=== PATIENT | male | born 1970 | race Caucasian/White ===

== ENCOUNTER → 2017-01-25 | Outpatient (CLI) | payer OTHER ==
[2014-11-19 10:21] VITALS: BP 140/74
[~2017-01-25] MED LIST: BLOOD PRESSURE MED; BUSP15TA PO; CYCL-331 PO; DIPH25CA58 PO; INSU100I17 SQ; SITA100T PO; TRAM50TA PO; ZOLP10TA PO
--- NOTE | 2017-01-25 10:29 | RAD ---
Left foot, 3 views, 01/25/2017: History: Foot contusion, injury No acute fracture or dislocation is identified. There is diffuse subcutaneous edema. IMPRESSION: No acute bony abnormality is detected.
== END | disposition home or self-care (01) ==
LOC: DXRADRC 10:09
PROVIDERS: ATTEND General Practice
DX: S90.32XD Contusion of left foot, subsequent encounter (principal); X58.XXXD Exposure to other specified factors, subsequent encounter
CPT/HCPCS: 73630

== ENCOUNTER → 2017-04-25 | Outpatient (CLI) | payer OTHER ==
[2014-11-19 10:21] VITALS: BP 140/74
--- NOTE | 2017-04-25 15:39 | RAD ---
Indication pain associated with a fall 2 weeks previously. Pain particularly lateral aspect of the foot. AP oblique and lateral views of the left foot were obtained. There is a slightly comminuted, traumatic, fracture involving the base of the shaft of the proximal phalanx of the fourth digit. IMPRESSION: Fractured proximal phalanx of the fourth digit
== END | disposition home or self-care (01) ==
LOC: DXRADRC 14:52
PROVIDERS: ATTEND General Practice
DX: S92.512A Displaced fracture of proximal phalanx of left lesser toe(s), initial encounter for closed fracture (principal); W19.XXXA Unspecified fall, initial encounter; Y93.9 Activity, unspecified; Y92.9 Unspecified place or not applicable; Y99.9 Unspecified external cause status
CPT/HCPCS: 73630

== ENCOUNTER → 2018-08-13 | Outpatient (CLI) | payer OTHER ==
[2014-11-19 10:21] VITALS: BP 140/74
[2018-08-13 15:53] LABS: BASO # 0.2 x10^3/uL (0.0-0.2); BASO % 2 % (0-3); EOS # 0.4 x10^3/uL (0.0-0.7); EOS % 4 % (0-3); HEMATOCRIT 46.7 % (39.0-53.0); HEMOGLOBIN 15.3 g/dL (13.0-17.5); LYMPH # 2.9 x10^3/uL (1.0-4.8); LYMPH % 30 % (24-48); MEAN CORPUSCULAR HEMOGLOBIN 28 pg (25-35); MEAN CORPUSCULAR HGB CONC 33 g/dL (31-37); MEAN CORPUSCULAR VOLUME 84 fL (79-100); MONO # 0.8 x10^3/uL (0.0-1.1); MONO % 8 % (0-9); NEUT # 5.5 x10^3uL (1.8-7.7); NEUT % 56 % (31-73); PLATELET COUNT 241 x10^3/uL (140-400); RED BLOOD COUNT 5.57 x10^6/uL (4.30-5.70); RED CELL DISTRIBUTION WIDTH 14.6 % (11.5-14.5); WHITE BLOOD COUNT 9.7 x10^3/uL (4.0-11.0)
[2018-08-13 16:15] LABS: ALBUMIN/GLOBULIN RATIO 0.7 (1.0-1.7); CALCIUM 8.5 mg/dL (8.5-10.1); CREATININE 1.1 mg/dL (0.7-1.3); GFR 71.4; MAGNESIUM 1.6 mg/dL (1.8-2.4); POTASSIUM 4.4 mmol/L (3.5-5.1); TOTAL BILIRUBIN 0.6 mg/dL (0.2-1.0); TOTAL PROTEIN 7.2 g/dL (6.4-8.2); URIC ACID 7.5 mg/dL (3.5-7.2)
[2018-08-14 02:06] LABS: HEMOGLOBIN A1C 9.5 % (4.8-5.6)
== END | disposition home or self-care (01) ==
LOC: LAB 15:22
PROVIDERS: ATTEND General Practice
DX: E11.9 Type 2 diabetes mellitus without complications (principal); M10.9 Gout, unspecified
CPT/HCPCS: 36415; 80053; 83036; 83735; 84550; 85025

== ENCOUNTER 2018-08-29 11:12 | Emergency (ER) | payer OTHER ==
[~2018-08-29] VITALS: Ht 165.1 cm; Wt 129.3 kg
[2018-08-29] MEDS ORDERED: IV NORMAL SALINE 1,000ML 1,000 ML IV SCH (11:30)
[2018-08-29] MEDS ORDERED: HYOSCYAMINE 0.125 MG TAB.RAPDIS PO ONE (11:30)
[2018-08-29] MEDS ORDERED: ONDANSETRON PF 4 MG/2 ML VIAL. IV ONE (11:30)
--- NOTE | 2018-08-29 11:36 | PHYS DOC ---
Past History Past Medical History: Anxiety, Depression, Diabetes, Hypertension Past Surgical History: Other Smoking: Non-smoker Alcohol Use: None Drug Use: None Adult General Chief Complaint Chief Complaint: ABDOMINAL PAIN HPI HPI Patient is a 48-year-old male who presents with nausea and vomiting and diarrhea that started this morning. No blood in the stool or emesis. Patient ate sauerkraut yesterday which is something that he has not eaten in a long time. Reports it's a diffuse crampy sensation in his abdomen improved with the episodes of vomiting and diarrhea. Denies any recent travel outside the country. Denies fever. Nothing seems to make the symptoms better or worse. He notes that he does feel lightheaded when standing up. Denies any chest pain or palpitations.[] Review of Systems Review of Systems Constitutional: Denies fever or chills [] Eyes: Denies change in visual acuity, redness, or eye pain [] HENT: Denies nasal congestion or sore throat [] Respiratory: Denies cough or shortness of breath [] Cardiovascular: No chest pain or palpitations[] GI: See history of present illness[] : Denies dysuria or hematuria [] Musculoskeletal: Denies back pain or joint pain [] Integument: Denies rash or skin lesions [] Neurologic: Denies headache, focal weakness or sensory changes [] Endocrine: Denies polyuria or polydipsia, notes that his blood sugar was 189 this morning which is a little high for him. [] All other systems were reviewed and found to be within normal limits, except as documented in this note. Allergies Allergies Allergies Coded Allergies Type Severity Reaction Last Updated Verified No Known Drug Allergies 07/24/13 No Physical Exam Physical Exam Constitutional: Well developed, well nourished, no acute distress, non-toxic appearance. [] HENT: Normocephalic, atraumatic, bilateral external ears normal, oropharynx moist, no oral exudates, nose normal. [] Eyes: PERRLA, EOMI, conjunctiva normal, no discharge. [] Neck: Normal range of motion, no tenderness, supple, no stridor. [] Cardiovascular:Heart rate is tachycardic with a regular rhythm, no murmur [] Lungs & Thorax: Bilateral breath sounds clear to auscultation [] Abdomen: Increased bowel sounds, soft, diffuse tenderness, no masses, no pulsatile masses. No McBurney's point tenderness, no Blancas's sign.[] Skin: Warm, dry, no erythema, no rash. [] Back: No tenderness, no CVA tenderness. [] Extremities: No tenderness, no cyanosis, no clubbing, ROM intact, no edema. [] Neurologic: Alert and oriented X 3, normal motor function, normal sensory function, no focal deficits noted. [] Psychologic: Affect normal, judgement normal, mood normal. [] Current Patient Data Vital Signs Vital Signs Date Time Temp Pulse Resp B/P (MAP) Pulse Ox O2 Delivery O2 Flow Rate FiO2 08/29/18 11:15 97.7 113 20 96 Room Air EKG EKG [] Radiology/Procedures Radiology/Procedures [] Course & Med Decision Making Course & Med Decision Making Pertinent Labs and Imaging studies reviewed. (See chart for details) ED course: Patient arrived, was placed in bed, and tolerated exam well. He received IV fluids, antiemetics, and antispasmodics which significantly improved his discomfort. After the return of the laboratory studies, these were discussed with the patient who voiced understanding. All questions were answered. Patient was discharged in improved condition. Medical decision making: Patient does not appear to be in DKA, no evidence of intractable nausea or vomiting, no hematemesis, no evidence of other significant intra-abdominal pathology.[] Dragon Disclaimer Dragon Disclaimer This electronic medical record was generated, in whole or in part, using a voice recognition dictation system. Departure Departure: Impression: Primary Impression: Abdominal pain Additional Impression: Nausea, vomiting, and diarrhea Disposition: 01 HOME, SELF-CARE Condition: IMPROVED Referrals: RIA NGUYEN DO (PCP) Follow-up in 2 days Patient Instructions: Abdominal Pain (Nonspecific), Diet for Diarrhea, Adult, Nausea and Vomiting Additional Instructions: Drink plenty of fluids, frequent small sips. No fatty foods, no milk, and no pepper for the next 48 hours. For the next 48 hours eat a diet rich in carbohydrates with foods such as bananas, rice, applesauce, and toast. Follow- up with your regular doctor in 2 days. Return to the ER if unable to tolerate liquids, worsening discomfort, or any other concerns. Scripts Ondansetron Hcl (ZOFRAN) 4 Mg Tablet 1 TAB PO Q6HRS for nausea or vomiting, #20 TAB Prov: NATE CASTILLO DO 08/29/18 Hyoscyamine Sulfate (LEVSIN) 0.125 Mg Tablet 0.125 MG PO QID for abdominal pain/cramping, #30 TAB Prov: NATE CASTILLO DO 08/29/18 Problem Qualifiers Primary Impression: Abdominal pain Abdominal location: generalized Qualified Codes: R10.84 - Generalized abdominal pain NATE CASTILLO DO Aug 29, 2018 11:35
[2018-08-29 12:22] LABS: BASO % 0 % (0-3); EOS # 0.1 x10^3/uL (0.0-0.7); EOS % 1 % (0-3); HEMATOCRIT 54.9 % (39.0-53.0); HEMOGLOBIN 18.1 g/dL (13.0-17.5); LYMPH # 1.7 x10^3/uL (1.0-4.8); LYMPH % 15 % (24-48); MEAN CORPUSCULAR HEMOGLOBIN 27 pg (25-35); MEAN CORPUSCULAR HGB CONC 33 g/dL (31-37); MEAN CORPUSCULAR VOLUME 83 fL (79-100); MONO # 0.5 x10^3/uL (0.0-1.1); MONO % 5 % (0-9); NEUT # 8.7 x10^3uL (1.8-7.7); NEUT % 79 % (31-73); PLATELET COUNT 263 x10^3/uL (140-400); RED BLOOD COUNT 6.62 x10^6/uL (4.30-5.70); RED CELL DISTRIBUTION WIDTH 14.8 % (11.5-14.5); WHITE BLOOD COUNT 11.1 x10^3/uL (4.0-11.0)
[2018-08-29 12:24] LABS: CLARITY,URINE HAZY; COLOR,URINE AMBER
[2018-08-29 12:25] LABS: BACTERIA,URINE FEW /HPF (0-FEW); BILIRUBIN,URINE NEG (NEG); GLUCOSE,URINE NEG (NEG); HYALINE CASTS, URINE FEW /HPF; NITRITE,URINE NEG (NEG); SQUAMOUS EPITHELIAL CELL,UR OCC /LPF; UROBILINOGEN,URINE 0.2 mg/dL (0.2 mg/dL)
[2018-08-29 12:30] LABS: ALBUMIN 3.7 g/dL (3.4-5.0); ALBUMIN/GLOBULIN RATIO 0.8 (1.0-1.7); CALCIUM 8.8 mg/dL (8.5-10.1); CREATININE 1.2 mg/dL (0.7-1.3); GFR 64.6; POTASSIUM 4.8 mmol/L (3.5-5.1); TOTAL PROTEIN 8.5 g/dL (6.4-8.2)
[2018-08-29 13:30] VITALS: BP 125/82
[2018-08-29] MEDS ORDERED: ONDA4TAB7 PO (13:41)
[2018-08-29] MEDS ORDERED: HYOS0.1264 PO (13:41)
== END 2018-08-29 13:47 | disposition home or self-care (01) ==
LOC: ER 11:12
DX: R11.2 Nausea with vomiting, unspecified (principal); R19.7 Diarrhea, unspecified; R10.84 Generalized abdominal pain; F41.9 Anxiety disorder, unspecified; F32.9 Major depressive disorder, single episode, unspecified; E11.9 Type 2 diabetes mellitus without complications; I10 Essential (primary) hypertension
CPT/HCPCS: 36415; 80053; 81001; 83690; 85025; 85610; 96361; 96374; 99283; J2405; J7030

== ENCOUNTER 2018-10-17 16:23 | Observation (INO) | payer OTHER ==
[~2018-10-17] VITALS: Ht 165.1 cm; Wt 117.9 kg
[~2018-10-17 16:23] MED LIST changes: +HYOS0.1264 PO; +ONDA4TAB7 PO
[2018-10-17] MEDS ORDERED: IV NORMAL SALINE 1,000ML 1,000 ML IV SCH (16:59)
[2018-10-17] MEDS ORDERED: KETOROLAC 30 MG/ML VIAL. IV ONE (17:15)
[2018-10-17] MEDS ORDERED: ONDANSETRON PF 4 MG/2 ML VIAL. IV ONE (17:15)
--- NOTE | 2018-10-17 17:24 | PHYS DOC ---
Past History Past Medical History: Anxiety, Depression, Diabetes, Hypertension Past Surgical History: Other Smoking: Non-smoker Alcohol Use: None Drug Use: None Adult General Chief Complaint Chief Complaint: FEVER HPI HPI Patient is a 48-year-old male with a fever, upper abdominal pain, and difficulty urinating that started last night. Abdominal pain started this afternoon after eating a [employer] burrito. Patient reports that this was at approximately 1300 when he also had a Mountain Dew. Patient noted that he had dark urine that has cleared up since drinking several bottles of water. Patient has felt cold chills. No chest pain, or vomiting. There is nausea present. No diarrhea. No ba ck pain or flank pain. Nothing seems to make the symptoms better or worse. Patient reports his blood sugar this morning was in the 70s.[] Review of Systems Review of Systems Constitutional: Denies fever [] Eyes: Denies change in visual acuity, redness, or eye pain [] HENT: Denies nasal congestion or sore throat [] Respiratory: Denies cough or shortness of breath [] Cardiovascular: No chest pain or palpitations[] GI: See history of present illness[] : See history of present illness[] Musculoskeletal: Denies back pain or joint pain [] Integument: Denies rash or skin lesions [] Neurologic: Denies headache, focal weakness or sensory changes [] Endocrine: Denies polyuria or polydipsia [] All other systems were reviewed and found to be within normal limits, except as documented in this note. Current Medications Current Medications Current Medications Medications (Trade) Dose Ordered Sig/Troy Start Time Stop Time Status Last Admin Dose Admin Ketorolac Tromethamine (Toradol 30mg Vial) 30 mg 1X ONCE 10/17/18 17:15 10/17/18 17:16 DC Ondansetron HCl (Zofran) 4 mg 1X ONCE 10/17/18 17:15 10/17/18 17:16 DC Sodium Chloride 1,000 ml @ 1,000 mls/hr Q1H 10/17/18 16:59 10/17/18 17:58 Allergies Allergies Allergies Coded Allergies Type Severity Reaction Last Updated Verified No Known Drug Allergies 07/24/13 No Physical Exam Physical Exam Constitutional: Well developed, well nourished, no acute distress, non-toxic appearance. [] HENT: Normocephalic, atraumatic, bilateral external ears normal, oropharynx moist, no oral exudates, nose normal. [] Eyes: PERRLA, EOMI, conjunctiva normal, no discharge. [] Neck: Normal range of motion, no tenderness, supple, no stridor. [] Cardiovascular:Heart rate is tachycardic with a regular rhythm, no murmur [] Lungs & Thorax: Bilateral breath sounds clear to auscultation [] Abdomen: Bowel sounds normal, soft, no tenderness, no masses, no pulsatile masses. [] Skin: Cool, damp no erythema, no rash. [] Back: No tenderness, no CVA tenderness. [] Extremities: No tenderness, no cyanosis, no clubbing, ROM intact, no edema. [] Neurologic: Alert and oriented X 3, normal motor function, normal sensory function, no focal deficits noted. [] Psychologic: Affect normal, judgement normal, mood normal. [] Current Patient Data Vital Signs Vital Signs Date Time Temp Pulse Resp B/P (MAP) Pulse Ox O2 Delivery O2 Flow Rate FiO2 10/17/18 16:38 96.9 113 24 98 Room Air EKG EKG EKG shows sinus tachycardia at 108 bpm, no ST elevations, normal axis, QTC of 451 ms, no old EKG is available for comparison. Interpreted by me at 1729[] Radiology/Procedures Radiology/Procedures [] Course & Med Decision Making Course & Med Decision Making Pertinent Labs and Imaging studies reviewed. (See chart for details) [] Dragon Disclaimer Dragon Disclaimer This electronic medical record was generated, in whole or in part, using a voice recognition dictation system. Departure Departure: Impression: Primary Impression: Hypothermia Additional Impressions: Elevated troponin Diabetes Disposition: ADMITTED INPATIENT Admitting Physician: Susan Wyatt Condition: IMPROVED Referrals: RIA NGUYEN DO (PCP) Problem Qualifiers Primary Impression: Hypothermia Encounter type: initial encounter Qualified Codes: T68.XXXA - Hypothermia, initial encounter Additional Impressions: Diabetes Diabetes mellitus type: type 2 Diabetes mellitus jail insulin use: unspecified jail insulin use status Diabetes mellitus complication status: with unspecified complications Qualified Codes: E11.8 - Type 2 diabetes mellitus with unspecified complications NATE CASTILLO DO Oct 17, 2018 17:24
[2018-10-17 17:35] LABS: BASO # 0.1 x10^3/uL (0.0-0.2); BASO % 1 % (0-3); EOS % 0 % (0-3); HEMATOCRIT 52.5 % (39.0-53.0); HEMOGLOBIN 17.3 g/dL (13.0-17.5); LYMPH # 1.6 x10^3/uL (1.0-4.8); LYMPH % 18 % (24-48); MEAN CORPUSCULAR HEMOGLOBIN 27 pg (25-35); MEAN CORPUSCULAR HGB CONC 33 g/dL (31-37); MEAN CORPUSCULAR VOLUME 83 fL (79-100); MONO # 0.5 x10^3/uL (0.0-1.1); MONO % 6 % (0-9); NEUT # 6.8 x10^3uL (1.8-7.7); NEUT % 76 % (31-73); PLATELET COUNT 207 x10^3/uL (140-400); RED CELL DISTRIBUTION WIDTH 14.8 % (11.5-14.5)
--- NOTE | 2018-10-17 17:53 | EKG ---
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 RI6.01 No previous ECG available for comparison Electronically Signed On 10-23-2018 11:57:56 CDT by Wilfred Grossman
[2018-10-17 17:56] LABS: ALBUMIN 3.4 g/dL (3.4-5.0); ALBUMIN/GLOBULIN RATIO 0.8 (1.0-1.7); CALCIUM 8.5 mg/dL (8.5-10.1); CREATININE 1.1 mg/dL (0.7-1.3); GFR 71.4; POTASSIUM 3.4 mmol/L (3.5-5.1); TOTAL BILIRUBIN 0.7 mg/dL (0.2-1.0); TOTAL PROTEIN 7.9 g/dL (6.4-8.2)
[2018-10-17] MEDS ORDERED: cefTRIAXone SODIUM 1 GM VIAL ONE ×2 (18:14→18:16)
--- NOTE | 2018-10-17 18:14 | RAD ---
CHEST PA LATERAL Technique: PA and lateral views of the chest were obtained. Clinical History: FEVER, CHILLS, CLAMY FEELING. CHEST PAIN Comparison: None. Findings: The heart and pulmonary vasculature appear within normal limits. The lungs are clear. The pleural margins are clear. Impression: No acute chest process is seen. Electronically signed by: Vance Mckenzie III, MD (10/17/2018 6:11 PM) [facility]
[2018-10-17] MEDS ORDERED: ONDANSETRON PF 4 MG/2 ML VIAL. IV PRN (18:15)
[2018-10-17] MEDS ORDERED: ACETAMINOPHEN 325 MG TABLET PO PRN (18:15)
[2018-10-17] MEDS ORDERED: NITROGLYCERIN SUBLINGUAL 0.4 MG BOTTLE OF 25. SL PRN (18:15)
[2018-10-17] MEDS ORDERED: ASPIRIN 81 MG TAB.CHEW PO ONE (18:15)
[2018-10-17] MEDS ORDERED: IV NORMAL SALINE 50ML 50 ML ONE (18:16)
[2018-10-17 18:54] LABS: BILIRUBIN,URINE NEG (NEG); CLARITY,URINE CLEAR; COLOR,URINE YELLOW; GLUCOSE,URINE 100 mg/dL (NEG)
[2018-10-17 18:55] LABS: BACTERIA,URINE 0 /HPF (0-FEW); NITRITE,URINE NEG (NEG); RBC,URINE 0 /HPF (0-2); SQUAMOUS EPITHELIAL CELL,UR OCC /LPF; UROBILINOGEN,URINE 1 mg/dL (0.2 mg/dL); WBC,URINE 0 /HPF (0-4)
[2018-10-17] MEDS ORDERED: cloNIDine HCL 0.1 MG TABLET ONE (19:59)
[2018-10-17] MEDS ORDERED: cloNIDine TTS-2 1 PATCH PATCH TD ONE ×2 (19:59→20:00)
[2018-10-17] MEDS: IV NORMAL SALINE 1,000ML 1,000 ML IV SCH (20:05)
[2018-10-17] MEDS ORDERED: cloNIDine HCL 0.1 MG TABLET PO ONE (20:15)
[2018-10-17 21:06] VITALS: BP 157/100
[2018-10-17] MEDS ORDERED: cloNIDine HCL 0.2 MG TABLET PO SCH (22:00)
[2018-10-17] MEDS ORDERED: POTASSIUM CHLORIDE 20 MEQ TABLET.ER. PO ONE (22:00)
[2018-10-17 22:15] VITALS: BP 122/63
[2018-10-17] MEDS ORDERED: CETI10TA16 PO (22:44)
[2018-10-17] MEDS ORDERED: GABA300C8 PO (22:44)
[2018-10-17] MEDS ORDERED: LISI10TA2 PO (22:44)
[2018-10-17] MEDS ORDERED: ATOR20TA58 PO (22:44)
[2018-10-17] MEDS ORDERED: INSU100I13 SQ (22:44)
[2018-10-17] MEDS ORDERED: HYDR-2763 PO (22:44)
[2018-10-17] MEDS ORDERED: CYCL-331 PO (22:52)
[2018-10-17] MEDS ORDERED: OMEP40CA5 PO (22:52)
[2018-10-17] MEDS ORDERED: INDO25CA5 PO (22:58)
[2018-10-17] MEDS ORDERED: HYDROcodone/APAP 7.5/325MG 1 TAB TABLET PO PRN (23:00)
[2018-10-17 23:15] VITALS: BP 145/70
[2018-10-17] MEDS ORDERED: TRAM50TA PO (23:22)
[2018-10-17] MEDS: traMADol 50 MG TABLET PO PRN (23:48)
[2018-10-18] MEDS ORDERED: CYCLOBENZAPRINE 10 MG TABLET. PO PRN
[2018-10-18] MEDS ORDERED: GABAPENTIN 300 MG CAPSULE. PO PRN
[2018-10-18] MEDS ORDERED: ATORVASTATIN CALCIUM 20 MG TABLET PO SCH
[2018-10-18 03:49] VITALS: BP 168/89
[2018-10-18] MEDS: IV NORMAL SALINE 1,000ML 1,000 ML IV SCH ×2 (05:32→10:04)
[2018-10-18 05:48] VITALS: BP 162/82
[2018-10-18 07:52] LABS: ALBUMIN 2.8 g/dL (3.4-5.0); ALBUMIN/GLOBULIN RATIO 0.8 (1.0-1.7); GFR 79.8; POTASSIUM 3.5 mmol/L (3.5-5.1); TOTAL BILIRUBIN 0.7 mg/dL (0.2-1.0); TOTAL PROTEIN 6.5 g/dL (6.4-8.2)
[2018-10-18 08:07] LABS: BASO # 0.1 x10^3/uL (0.0-0.2); BASO % 1 % (0-3); EOS # 0.1 x10^3/uL (0.0-0.7); EOS % 1 % (0-3); HEMOGLOBIN 15.3 g/dL (13.0-17.5); LYMPH # 2.5 x10^3/uL (1.0-4.8); LYMPH % 25 % (24-48); MEAN CORPUSCULAR HEMOGLOBIN 28 pg (25-35); MEAN CORPUSCULAR HGB CONC 33 g/dL (31-37); MEAN CORPUSCULAR VOLUME 83 fL (79-100); MONO # 0.8 x10^3/uL (0.0-1.1); MONO % 8 % (0-9); NEUT # 6.6 x10^3uL (1.8-7.7); NEUT % 66 % (31-73); PLATELET COUNT 176 x10^3/uL (140-400); RED BLOOD COUNT 5.53 x10^6/uL (4.30-5.70); RED CELL DISTRIBUTION WIDTH 14.3 % (11.5-14.5)
[2018-10-18] MEDS: HYOSCYAMINE 0.125 MG TAB.RAPDIS PO SCH ×2 (08:18→11:52)
[2018-10-18] MEDS ORDERED: INSULIN GLARGINE 300 UNITS/3 ML INSULN.PEN. SQ SCH (09:00)
[2018-10-18 11:00] VITALS: BP 158/87
[2018-10-18] MEDS: traMADol 50 MG TABLET PO PRN (11:52)
--- NOTE | 2018-10-18 14:47 | PDOC2 ---
CONSULT Date of Admission DATE: 10/18/18 TIME: 14:47 Reason for Consult: Elevated troponin level Referring Physician: Dr. Wyatt Chief Complaint Abdominal pain Source: Chart review, Patient Problem List Problems Medical Problems: (1) Diabetes Status: Acute (2) Elevated troponin Status: Acute (3) Hypothermia Status: Acute History of Present Illness 48-year-old male without any previous cardiac history apparently started having abdominal pain after eating [employer] burrito and drinking Mountain Dew last night. Labs in ED showed slightly elevated troponin level and hence we have been consulted. Patient denied any previous cardiac history and presently denied any chest pain, orthopnea/PND, palpitations or syncope. Past Medical History Hypertension Diabetes mellitus type 2 Anxiety/depression Family History Positive for premature coronary artery disease Social History Patient is a nonsmoker and a nondrinker Current Medications Current Medications Sodium Chloride 1,000 ml @ 1,000 mls/hr Q1H IV Last administered on 10/17/18at 17:51; Start 10/17/18 at 16:59; Stop 10/17/18 at 17:58; Status DC Ondansetron HCl (Zofran) 4 mg 1X ONCE IV Last administered on 10/17/18at 17:51; Start 10/17/18 at 17:15; Stop 10/17/18 at 17:16; Status DC Ketorolac Tromethamine (Toradol 30mg Vial) 30 mg 1X ONCE IV Last administered on 10/17/18at 17:51; Start 10/17/18 at 17:15; Stop 10/17/18 at 17:16; Status DC Aspirin (Children'S Aspirin) 324 mg 1X ONCE PO Last administered on 10/17/18at 18:13; Start 10/17/18 at 18:15; Stop 10/17/18 at 18:17; Status DC Ceftriaxone Sodium 1 gm/ Sodium Chloride 50 ml @ 100 mls/hr 1X ONCE IV Last administered on 10/17/18at 18:21; Start 10/17/18 at 18:00; Stop 10/17/18 at 18:29; Status DC Ondansetron HCl (Zofran) 4 mg PRN Q4HRS PRN IV NAUSEA/VOMITING; Start 10/17/18 at 18:15; Stop 10/18/18 at 18:14 Sodium Chloride 1,000 ml @ 125 mls/hr Q8H IV Last administered on 10/18/18at 05:32; Start 10/17/18 at 18:04; Stop 10/18/18 at 18:03 Acetaminophen (Tylenol) 650 mg PRN Q4HRS PRN PO FEVER; Start 10/17/18 at 18:15; Stop 10/18/18 at 18:14 Nitroglycerin (Nitrostat) 0.4 mg PRN Q5MIN PRN SL CHEST PAIN; Start 10/17/18 at 18:15; Stop 10/18/18 at 18:14 Ceftriaxone Sodium (Rocephin) 1 gm STK-MED ONCE .ROUTE ; Start 10/17/18 at 18:14 ; Stop 10/17/18 at 18:15; Status DC Sodium Chloride 50 ml @ As Directed STK-MED ONCE .ROUTE ; Start 10/17/18 at 18:16; Stop 10/17/18 at 18:17; Status DC Ceftriaxone Sodium (Rocephin) 1 gm STK-MED ONCE .ROUTE ; Start 10/17/18 at 18:16; Stop 10/17/18 at 18:17; Status DC Clonidine HCl (Catapres Tts-2) 1 patch 1X ONCE TD Last administered on 10/17/18at 20:07; Start 10/17/18 at 20:00; Stop 10/17/18 at 20:01; Status DC Clonidine HCl (Catapres) 0.2 mg Q8HRS PO ; Start 10/17/18 at 22:00; Stop 10/17/18 at 22:00; Status DC Clonidine HCl (Catapres Tts-2) 1 patch STK-MED ONCE TD ; Start 10/17/18 at 19:59; Stop 10/17/18 at 20:00; Status DC Clonidine HCl (Catapres) 0.1 mg STK-MED ONCE .ROUTE ; Start 10/17/18 at 19:59; Stop 10/17/18 at 20:00; Status DC Clonidine HCl (Catapres) 0.2 mg 1X ONCE PO Last administered on 10/17/18at 20:14; Start 10/17/18 at 20:15; Stop 10/17/18 at 20:16; Status DC Potassium Chloride (Klor-Con) 40 meq 1X ONCE PO Last administered on 10/17/18at 23:47; Start 10/17/18 at 22:00; Stop 10/17/18 at 22:01; Status DC Atorvastatin Calcium (Lipitor) 20 mg HS PO Last administered on 10/17/18at 23:47; Start 10/18/18 at 00:00 Acetaminophen/ Hydrocodone Bitart (Lortab 7.5/325) 1 tab PRN BID PRN PO Pain Last administered on 10/18/18at 08:19; Start 10/17/18 at 23:00 Insulin Glargine (Lantus) 75 units BID SQ ; Start 10/18/18 at 09:00 Cyclobenzaprine HCl (Flexeril) 10 mg PRN TID PRN PO MUSCLE SPASMS Last administered on 10/18/18at 11:52; Start 10/18/18 at 00:00 Gabapentin (Neurontin) 300 mg PRN TID PRN PO NEUROPATHIC PAIN; Start 10/18/18 at 00:00 Hyoscyamine (Anaspaz) 0.125 mg QID PO Last administered on 10/18/18at 11:52; Start 10/18/18 at 09:00 Tramadol HCl (Ultram) 50 mg PRN BID PRN PO PAIN Last administered on 10/18/18at 11:52; Start 10/17/18 at 23:30 Active Scripts Active Zofran (Ondansetron Hcl) 4 Mg Tablet 1 Tab PO Q6HRS Levsin (Hyoscyamine Sulfate) 0.125 Mg Tablet 0.125 Mg PO QID Benadryl (Diphenhydramine Hcl) 25 Mg Capsule 2 Cap PO PRN Q6-8HRS PRN Reported Tramadol Hcl (Tramadol HCl) 50 Mg Tablet 50 Mg PO PRN BID PRN Indomethacin 25 Mg Capsule 25 Mg PO BID Omeprazole 40 Mg Capsule.dr 40 Mg PO DAILY Cyclobenzaprine Hcl 10 Mg Tablet 10 Mg PO TID Gabapentin 300 Mg Capsule 300 Mg PO TID Lantus Solostar (Insulin Glargine,Hum.rec.anlog) 100 Unit/1 Ml Insuln.pen 75 Units SQ BID Atorvastatin Calcium 20 Mg Tablet 20 Mg PO HS Hydrocodone-Acetamin 7.5-325 (Hydrocodone/Acetaminophen) 1 Each Tablet 7.5-325 Mg PO BID Cetirizine Hcl 10 Mg Tablet 10 Mg PO DAILY Lisinopril 10 Mg Tablet 10 Mg PO DAILY Allergies: Coded Allergies: No Known Drug Allergies (Unverified , 07/24/13) PSYCHOLOGICAL ROS: No: Hallucinations Eyes: No: Loss of vision HEENT: No: Epistaxis Respiratory: No: Hemoptysis, Shortness of breath Cardiovascular: No: Chest Pain, Palpitations Gastrointestinal: YES: Abdominal Pain Genitourinary: No: Incontinence Neurological: No: Seizures Skin: No: Rash General: Alert, Oriented X3 HEENT: Atraumatic, PERRLA Lungs: Clear to auscultation Heart: Regular rate Abdomen: Soft, No tenderness Extremities: No edema Psych/Mental Status: Mood NL VITALS Vital Signs Date Time Temp Pulse Resp B/P (MAP) Pulse Ox O2 Delivery O2 Flow Rate FiO2 10/18/18 12:52 98 Room Air 10/18/18 11:00 98.9 84 158/87 (110) 10/18/18 05:48 2.0 10/18/18 03:49 24 Labs Laboratory Tests Test 10/17/18 17:25 10/17/18 18:32 10/17/18 20:19 10/17/18 20:30 White Blood Count 9.0 x10^3/uL (4.0-11.0) Red Blood Count 6.30 x10^6/uL (4.30-5.70) Hemoglobin 17.3 g/dL (13.0-17.5) Hematocrit 52.5 % (39.0-53.0) Mean Corpuscular Volume 83 fL (79-100) Mean Corpuscular Hemoglobin 27 pg (25-35) Mean Corpuscular Hemoglobin Concent 33 g/dL (31-37) Red Cell Distribution Width 14.8 % (11.5-14.5) Platelet Count 207 x10^3/uL (140-400) Neutrophils (%) (Auto) 76 % (31-73) Lymphocytes (%) (Auto) 18 % (24-48) Monocytes (%) (Auto) 6 % (0-9) Eosinophils (%) (Auto) 0 % (0-3) Basophils (%) (Auto) 1 % (0-3) Neutrophils # (Auto) 6.8 x10^3uL (1.8-7.7) Lymphocytes # (Auto) 1.6 x10^3/uL (1.0-4.8) Monocytes # (Auto) 0.5 x10^3/uL (0.0-1.1) Eosinophils # (Auto) 0.0 x10^3/uL (0.0-0.7) Basophils # (Auto) 0.1 x10^3/uL (0.0-0.2) Sodium Level 141 mmol/L (136-145) Potassium Level 3.4 mmol/L (3.5-5.1) Chloride Level 101 mmol/L (98-107) Carbon Dioxide Level 32 mmol/L (21-32) Anion Gap 8 (6-14) Blood Urea Nitrogen 8 mg/dL (8-26) Creatinine 1.1 mg/dL (0.7-1.3) Estimated GFR (Cockcroft-Gault) 71.4 BUN/Creatinine Ratio 7 (6-20) Glucose Level 210 mg/dL (70-99) Lactic Acid Level 1.7 mmol/L (0.4-2.0) 0.9 mmol/L (0.4-2.0) Calcium Level 8.5 mg/dL (8.5-10.1) Total Bilirubin 0.7 mg/dL (0.2-1.0) Aspartate Amino Transf (AST/SGOT) 28 U/L (15-37) Alanine Aminotransferase (ALT/SGPT) 28 U/L (16-63) Alkaline Phosphatase 124 U/L (46-116) Troponin I Quantitative 0.088 ng/mL (0-0.055) 0.127 ng/mL (0-0.055) XG-Uuc-T-Type Natriuretic Peptide 202 pg/mL (0-124) Total Protein 7.9 g/dL (6.4-8.2) Albumin 3.4 g/dL (3.4-5.0) Albumin/Globulin Ratio 0.8 (1.0-1.7) Lipase 178 U/L (73-393) Urine Collection Type Unknown Urine Color Yellow Urine Clarity Clear Urine pH 6.5 Urine Specific [place] 1.025 Urine Protein >100 mg/dl (NEG-TRACE) Urine Glucose (UA) 100 mg/dL (NEG) Urine Ketones (Stick) Neg mg/dL (NEG) Urine Blood Mod (NEG) Urine Nitrite Neg (NEG) Urine Bilirubin Neg (NEG) Urine Urobilinogen Dipstick 1 mg/dL (0.2 mg/dL) Urine Leukocyte Esterase Neg (NEG) Urine RBC 0 /HPF (0-2) Urine WBC 0 /HPF (0-4) Urine Squamous Epithelial Cells Occ /LPF Urine Bacteria 0 /HPF (0-FEW) Nasal Screen MRSA (PCR) Negative (Negative) Test 10/17/18 21:21 10/18/18 00:20 10/18/18 03:09 10/18/18 03:27 Glucose (Fingerstick) 76 mg/dL (70-99) 49 mg/dL (70-99) 66 mg/dL (70-99) Troponin I Quantitative 0.143 ng/mL (0-0.055) Test 10/18/18 03:44 10/18/18 05:40 10/18/18 06:30 10/18/18 07:53 Glucose (Fingerstick) 101 mg/dL (70-99) 61 mg/dL (70-99) White Blood Count 10.0 x10^3/uL (4.0-11.0) Red Blood Count 5.53 x10^6/uL (4.30-5.70) Hemoglobin 15.3 g/dL (13.0-17.5) Hematocrit 46.0 % (39.0-53.0) Mean Corpuscular Volume 83 fL (79-100) Mean Corpuscular Hemoglobin 28 pg (25-35) Mean Corpuscular Hemoglobin Concent 33 g/dL (31-37) Red Cell Distribution Width 14.3 % (11.5-14.5) Platelet Count 176 x10^3/uL (140-400) Neutrophils (%) (Auto) 66 % (31-73) Lymphocytes (%) (Auto) 25 % (24-48) Monocytes (%) (Auto) 8 % (0-9) Eosinophils (%) (Auto) 1 % (0-3) Basophils (%) (Auto) 1 % (0-3) Neutrophils # (Auto) 6.6 x10^3uL (1.8-7.7) Lymphocytes # (Auto) 2.5 x10^3/uL (1.0-4.8) Monocytes # (Auto) 0.8 x10^3/uL (0.0-1.1) Eosinophils # (Auto) 0.1 x10^3/uL (0.0-0.7) Basophils # (Auto) 0.1 x10^3/uL (0.0-0.2) Sodium Level 141 mmol/L (136-145) Potassium Level 3.5 mmol/L (3.5-5.1) Chloride Level 103 mmol/L (98-107) Carbon Dioxide Level 30 mmol/L (21-32) Anion Gap 8 (6-14) Blood Urea Nitrogen 7 mg/dL (8-26) Creatinine 1.0 mg/dL (0.7-1.3) Estimated GFR (Cockcroft-Gault) 79.8 BUN/Creatinine Ratio 7 (6-20) Glucose Level 91 mg/dL (70-99) Calcium Level 8.0 mg/dL (8.5-10.1) Total Bilirubin 0.7 mg/dL (0.2-1.0) Aspartate Amino Transf (AST/SGOT) 30 U/L (15-37) Alanine Aminotransferase (ALT/SGPT) 25 U/L (16-63) Alkaline Phosphatase 99 U/L (46-116) Total Protein 6.5 g/dL (6.4-8.2) Albumin 2.8 g/dL (3.4-5.0) Albumin/Globulin Ratio 0.8 (1.0-1.7) Clostridium difficile Toxin B Gene Negative (Negative) Test 10/18/18 08:08 10/18/18 11:57 Glucose (Fingerstick) 79 mg/dL (70-99) 111 mg/dL (70-99) Assessment/Plan 1. Slightly elevated troponin level most probably demand ischemia. Patient denied any chest pain and EKG without acute changes. Plan for 2-D echo and Lexiscan nuclear stress test as an outpatient. 2. Hypertension: Blood pressure slightly elevated. Start Norvasc for better control 3. Hyperlipidemia: Statin therapy Thank you for your consultation LESTER BLACK MD Oct 18, 2018 14:47
[2018-10-18 15:04] VITALS: BP 147/68
[2018-10-18] MEDS ORDERED: amLODIPine BESYLATE 5 MG TABLET PO SCH (17:30)
--- NOTE | 2018-10-18 18:03 | HP ---
ADMIT DATE: 10/17/2018 HISTORY OF PRESENT ILLNESS: The patient is a 48-year-old -[place] male patient with multiple medical problems, who came to the Emergency Room, complaining of fever, upper abdominal pain, difficulty urinating that started the night before. His abdominal pain also started after he has eaten [employer]. He states that started about 1300 when he also had a Mountain Dew. He noted also he had dark urine that has cleared up since drinking several bottles of water. The patient has felt cold chills, no chest pain, and no vomiting. There is nausea present. No diarrhea, no back pain or flank pain. Nothing seems to make his symptoms better or worse. The patient reports his blood sugar this morning was in the 70s; however, my version of the story is that he had 3 episodes of diarrhea, whole the yesterday. In any case, he was evaluated in the Emergency Room and apparently, his chemistry showed that his troponin was elevated at 0.088 and therefore, he was admitted to do 2 more sets of cardiac enzymes and consult the Cardiology Team. PAST MEDICAL HISTORY: Significant for type 2 diabetes, hypertension, hyperlipidemia, fatty liver, morbid obesity, and obstructive sleep apnea. PAST SURGICAL HISTORY: Significant for surgical repair of a traumatic split of his upper lip. ALLERGIES: He has no known drug allergies. MEDICATIONS: He is currently on following medications: He is on diphenhydramine 25 mg, he takes 50 every 6-8 hours for itching; cetirizine 10 mg once a day, hyoscyamine sulfate for Levsin 0.125 mg 4 times a day for abdominal pain and cramping, cyclobenzaprine 10 mg 3 times a day for muscle spasm, atorvastatin calcium 20 mg at bedtime. He is on lisinopril 10 mg at bedtime. He is also on indomethacin 25 mg twice a day, hydrocodone/APAP 7.5/325 one tablet twice a day, tramadol 50 mg twice a day, gabapentin 300 mg 3 times a day, ondansetron 4 mg every 6 hours, omeprazole 40 mg once a day. He is also on Lantus insulin 75 units subcutaneously twice a day. FAMILY HISTORY: He has 3 brothers and 3 sisters. His oldest brother at age of 55 because of myocardial infarction, the other 2 brothers have hypertension. His 3 sisters are healthy. His father at the age of 79 because of throat cancer. His mother is still alive at the age of 76. SOCIAL HISTORY: He is single, never , has no children. He quit smoking 10 years ago. He used to be heavy drinker also and quit 3-4 years ago. 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 REVIEW OF SYSTEMS: The patient denied any blurring of vision, cataract, glaucoma or macular degeneration. Denied any earache, tinnitus or sensorineural deafness. Denied any nosebleeds, stuffy nose or postnasal drip. Denied any sore throat, sore tongue, toothache, hoarseness of voice or difficulty swallowing. He did have some nausea and vomiting as well as diarrhea, but denied any hematemesis, melena, or hematochezia. Denied any dysuria, frequency or hematuria. Denied any chest pain, shortness of breath, orthopnea, or paroxysmal nocturnal dyspnea. PHYSICAL EXAMINATION: GENERAL: On arrival to the Emergency Room, he looked well and was clearly in no apparent respiratory distress. No pallor, jaundice, cyanosis, or thyromegaly. No jugular venous distension. No lower limb edema. VITAL SIGNS: His heart rate was 113, blood pressure was 187/94, temperature was 96.9, respiratory rate was 24, and oxygen saturation was 98%. HEAD, EYES, EARS, NOSE AND THROAT: Showed normocephalic, atraumatic. NECK: Supple. HEART: Showed normal first and second heart sounds with no gallop, rub or murmur. CHEST: Clear to auscultation. No crepitation or rhonchi. ABDOMEN: Distended, soft, nontender. No guarding or rigidity. No organomegaly. All hernial orifices intact. Bowel sounds normal. NEUROLOGIC: He was awake, alert, responding appropriately. All cranial nerves intact. EXTREMITIES: He moves extremities without difficulty, ambulates without assistance or assistive devices. LABORATORY DATA: On admission showed that his serum sodium was 141, potassium 3.4, chloride 101, bicarbonate 32, anion gap of 8, BUN 8, creatinine 1.1, estimated GFR was 71 mL per minute, his glucose was 210, calcium was 8.5, and lactic acid was 1.7. Total bilirubin, AST, ALT were normal. Alkaline phosphatase slightly elevated. Troponin was 0.088. Beta natriuretic peptide was 202. Total protein was 7.9, albumin was 3.4. His urinalysis was essentially unremarkable. His C. diff was negative and nasal screen for MRSA with PCR was negative. His chest x-ray showed the heart and pulmonary vasculature appeared within normal limits. The lungs are clear. The pleural margins are clear. His EKG showed that he was in sinus tachycardia with heart rate of 108 beats per minute with a non-ST segment elevation, normal axis and normal-corrected QT interval. The patient was admitted to do 2 more sets of cardiac enzyme and to consult the Cardiology Team. SHWETA MIRELES MD DR: CONOR/larissa JOB#: [id number] / [id number]
--- NOTE | 2018-10-18 18:18 | DS ---
DATE OF DISCHARGE: HISTORY OF PRESENT ILLNESS: The patient is a 48-year-old -[place] male patient who was admitted with abdominal pain. Incidentally, his troponin was found to be high at 0.088 and therefore, he was admitted to do 2 more sets of cardiac enzyme and to consult the nutrition professor. Indeed, he has 2 more sets of cardiac enzymes, which showed troponin to be 0.127 and 0.423. He was seen by Dr. Schulte, who basically recommended that the patient can be discharged and to have stress test as an outpatient. The patient did not complain of any chest pain to start with. PHYSICAL EXAMINATION: GENERAL: When I saw him this afternoon, he looked well and was clearly in no apparent respiratory distress. No pallor, jaundice, cyanosis, or thyromegaly. No jugular venous distension. No limb edema. VITAL SIGNS: His heart rate was 81, blood pressure was 147/68, temperature was 98.5, respiratory rate 22 and oxygen saturation was 98%. Rest of clinical examination is stable. LABORATORY DATA: This morning showed a serum sodium 141, potassium 3.5, chloride 103, bicarbonate 30, anion gap of 8, BUN 7, creatinine 1, estimated GFR was 79.8, glucose was 91 and blood sugar seems to be extremely well controlled. His calcium was 8, total bilirubin, AST, ALT, alkaline phosphatase were normal. Total protein was 6.5, albumin 2.8. His white cell count was 10,000, hemoglobin 15, hematocrit 46, MCV 83 and platelet count 276,000. The patient has 2 more sets of cardiac enzymes, which showed slight elevation of the troponin. DISCHARGE MEDICATIONS: He was discharged on atorvastatin calcium 20 mg at bedtime, cetirizine 10 mg daily, cyclobenzaprine 10 mg 3 times a day, diphenhydramine 50 mg every 6-8 hours, gabapentin 300 mg 3 times a day, hydrocodone/APAP 7.5/325 one tablet twice a day, hyoscyamine sulfate 0.125 mg 4 times a day, indomethacin 25 mg twice a day. He is on Lantus insulin 75 units subcutaneously twice a day, lisinopril 10 mg once a day, omeprazole 40 mg once a day, ondansetron 4 mg every 6 hours and tramadol 50 mg twice a day. FINAL DISCHARGE DIAGNOSIS: Incidental finding of elevated troponin. The patient was asymptomatic, chest pain free. The patient has multiple risk factors for coronary artery disease and the nutrition professor recommended stress test as an outpatient. He has multiple other medical problems including hyperlipidemia, hypertension, type 2 diabetes, irritable bowel syndrome, gastroesophageal reflux disease. SHWETA MIRELES MD DR: CONOR/larissa JOB#: [id number] / [id number]
== END 2018-10-18 18:11 | disposition home or self-care (01) ==
LOC: ER 16:23 → ICU 19:09 → INTOOBSV 19:09
PROVIDERS: ADMIT Internal Medicine; ATTEND Internal Medicine
DX: T68.XXXA Hypothermia, initial encounter (principal); Z68.41 Body mass index [BMI] 40.0-44.9, adult; I24.8 Other forms of acute ischemic heart disease; E11.9 Type 2 diabetes mellitus without complications; E78.5 Hyperlipidemia, unspecified; G47.33 Obstructive sleep apnea (adult) (pediatric); I10 Essential (primary) hypertension; E66.01 Morbid (severe) obesity due to excess calories; F32.9 Major depressive disorder, single episode, unspecified; F41.9 Anxiety disorder, unspecified; K21.9 Gastro-esophageal reflux disease without esophagitis; K58.9 Irritable bowel syndrome, unspecified; K76.0 Fatty (change of) liver, not elsewhere classified; Z80.8 Family history of malignant neoplasm of other organs or systems; Z82.49 Family history of ischemic heart disease and other diseases of the circulatory system; Z87.891 Personal history of nicotine dependence; R19.7 Diarrhea, unspecified; R10.10 Upper abdominal pain, unspecified
CPT/HCPCS: 36415; 71046; 80053; 81001; 82947; 83605; 83690; 83880; 84484; 85025; 87040; 87493; 87641; 93005; 96361; 96365; 96375; 99284; G0378; J0696; J1885; J2405; G0379; J1815; 99285-25; J7030

== ENCOUNTER 2018-11-11 09:12 | Emergency (ER) | payer OTHER ==
[~2018-11-11 09:12] MED LIST changes: +ATOR20TA58 PO; +CETI10TA16 PO; +GABA300C8 PO; +HYDR-2763 PO; +INDO25CA5 PO; +INSU100I13 SQ; +LISI10TA2 PO; +OMEP40CA5 PO
[2018-11-11 09:22] VITALS: BP 167/105
--- NOTE | 2018-11-11 10:37 | PHYS DOC ---
Past History Past Medical History: Diabetes, Hypertension Past Surgical History: No Surgical History Smoking: Non-smoker Alcohol Use: None Drug Use: None Adult General Chief Complaint Chief Complaint: FOREIGN BODY HPI HPI 48-year-old male presents with concern for needle in his subcutaneous abdomen. The patient gives himself insulin shots and after giving himself insulin today he noticed the needle was messing. He believes it is still in his abdomen. Patient denies any pain or complications. He's had no site bleeding. He denies fever or chills. He denies being able to feel the needle below the skin. Review of Systems Review of Systems Constitutional: Denies fever or chills [] Eyes: Denies change in visual acuity, redness, or eye pain [] HENT: Denies nasal congestion or sore throat [] Respiratory: Denies cough or shortness of breath [] Cardiovascular: No additional information not addressed in HPI [] GI: Denies abdominal pain, nausea, vomiting, bloody stools or diarrhea [] : Denies dysuria or hematuria [] Musculoskeletal: Denies back pain or joint pain [] Integument: Foreign body abdomen[] Neurologic: Denies headache, focal weakness or sensory changes [] Endocrine: Denies polyuria or polydipsia [] All other systems were reviewed and found to be within normal limits, except as documented in this note. Allergies Allergies Allergies Coded Allergies Type Severity Reaction Last Updated Verified No Known Drug Allergies 07/24/13 No Physical Exam Physical Exam Constitutional: Well developed, well nourished, no acute distress, non-toxic appearance. [] HENT: Normocephalic, atraumatic, bilateral external ears normal, oropharynx moist, no oral exudates, nose normal. [] Eyes: PERRLA, EOMI, conjunctiva normal, no discharge. [] Neck: Normal range of motion, no tenderness, supple, no stridor. [] Cardiovascular:Heart rate regular rhythm, no murmur [] Lungs & Thorax: Bilateral breath sounds clear to auscultation [] Abdomen: Bowel sounds normal, soft, no tenderness, no masses, no pulsatile masses. [] Skin: Warm, dry, no erythema, no rash. No obvious puncture site or palpable foreign body. [] Back: No tenderness, no CVA tenderness. [] Extremities: No tenderness, no cyanosis, no clubbing, ROM intact, no edema. [] Neurologic: Alert and oriented X 3, normal motor function, normal sensory function, no focal deficits noted. [] Psychologic: Affect normal, judgement normal, mood normal. [] Current Patient Data Vital Signs Vital Signs Date Time Temp Pulse Resp B/P (MAP) Pulse Ox O2 Delivery O2 Flow Rate FiO2 11/11/18 09:22 97.8 107 18 100 Room Air EKG EKG [] Radiology/Procedures Radiology/Procedures [] Course & Med Decision Making Course & Med Decision Making Pertinent Labs and Imaging studies reviewed. (See chart for details) I placed an ultrasound on the patient at bedside to locate the needle. I had some very small areas of increased density in the area the patient believes the needle was. This appears to be at least 2 cm deep. This is still firmly within the subcutaneous fat. Given the depth, I do not believe it would be prudent to go after the needle in the ER. I'm afraid I would have to make a large incision and identification might still be difficult. I believe that he can be safely left there due to its location and low likelihood of complication. The patient is in agreement with this plan. If infection develops or he has any complicat ions, he will follow-up and consider surgical removal. He is stable for discharge at this time. [] Dragon Disclaimer Dragon Disclaimer This electronic medical record was generated, in whole or in part, using a voice recognition dictation system. Departure Departure: Impression: Primary Impression: Foreign body of abdominal wall Disposition: HOME, SELF-CARE Condition: STABLE Referrals: RIA NGUYEN DO (PCP) Patient Instructions: Foreign Body-Brief Problem Qualifiers Primary Impression: Foreign body of abdominal wall Encounter type: initial encounter Qualified Codes: S30.851A - Superficial foreign body of abdominal wall, initial encounter ELDA CONNELL DO November 11, 2018 10:37
== END 2018-11-11 10:39 | disposition home or self-care (01) ==
LOC: ER 09:12
DX: S30.851A Superficial foreign body of abdominal wall, initial encounter (principal); E11.9 Type 2 diabetes mellitus without complications; I10 Essential (primary) hypertension; W27.3XXA Contact with needle (sewing), initial encounter; Y93.89 Activity, other specified; Y92.89 Other specified places as the place of occurrence of the external cause; Y99.8 Other external cause status
CPT/HCPCS: 99284

== ENCOUNTER → 2019-10-22 | Outpatient (CLI) | payer MEDICAID ==
[~2019-10-22] MED LIST changes: +INDO25CA21 PO; -INDO25CA5 PO; +OMEP40CA45 PO; -OMEP40CA5 PO
--- NOTE | 2019-10-22 16:32 | RAD ---
INDICATION: Knee pain COMPARISON: None. IMPRESSION: Right knee: 3 views obtained. No evidence of acute fracture or dislocation. There is suspected early degenerative changes. Moderate knee joint effusion. There is also some edema in Hoffa's fat pad as well as prepatellar edema to the soft tissues Electronically signed by: Angelo Jones MD (10/22/2019 4:29 PM) [id number]
== END ==
LOC: DXRAD 16:05
PROVIDERS: ATTEND Physician Assistant Medical
DX: M25.461 Effusion, right knee (principal); M79.4 Hypertrophy of (infrapatellar) fat pad
CPT/HCPCS: 73562

== ENCOUNTER → 2020-01-01 | Outpatient (CLI) | payer MEDICAID ==
--- NOTE | 2020-01-01 12:42 | RAD ---
EXAM: ABDOMEN 2 VIEWS. HISTORY: Abdominal pain, loss of appetite. COMPARISON: None. FINDINGS: Supine and upright views of the abdomen are obtained. There is no pneumoperitoneum. There are no distended small bowel loops or significant air fluid levels. There is gas distally. IMPRESSION: 1. No evidence of obstruction. Electronically signed by: Silva Martins MD (01/01/2020 12:39 PM) [id number]
== END ==
LOC: PMG 12-31 12:17
PROVIDERS: ATTEND Physician Assistant
DX: R10.84 Generalized abdominal pain (principal)
CPT/HCPCS: 74019

== ENCOUNTER → 2020-10-13 | Outpatient (CLI) | payer MEDICAID ==
[~2020-10-13] MED LIST changes: +LISI10TA16 PO; -LISI10TA2 PO
--- NOTE | 2020-10-13 11:35 | RAD ---
EXAM: Abdomen, 2 views. HISTORY: Pain. COMPARISON: 01/01/2020 FINDINGS: Frontal upright and supine views of the abdomen are obtained. There is gas and stool within the colon. There is no evidence of abnormal bowel dilatation. There is no free air. IMPRESSION: Nonobstructive bowel gas pattern. Electronically signed by: Alexandra John MD (10/13/2020 11:33 AM) [id number]
== END ==
LOC: RAD 11:04
PROVIDERS: ATTEND Physician Assistant
DX: R10.33 Periumbilical pain (principal)
CPT/HCPCS: 74019

== ENCOUNTER 2020-10-15 13:26 | Emergency (ER) | payer MEDICAID ==
[~2020-10-15] VITALS: Ht 162.6 cm; Wt 130.0 kg
--- NOTE | 2020-10-15 13:47 | PHYS DOC ---
Past History Past Medical History: Diabetes, Hypertension Past Surgical History: No Surgical History Smoking: Non-smoker Alcohol Use: None Drug Use: None Adult General Chief Complaint Chief Complaint: ABDOMINAL PAIN HPI HPI Patient is a 50-year-old male presents emergency department stating that his primary care provider МАРИЯ Mackenzie called him at home and told him to come straight to the emergency department for evaluation. Patient was not sure why or what he need to have evaluated. Patient states that he seen his primary care provider for abdominal pain on 10/13/2020. Patient states he has had abdominal pain for over a year, states that he did not have time to have it evaluated and was just recently seeing his primary care provider to find out why his abdomen has been hurting. Patient currently reports generalized abdominal pain of 5/10 on a 1-10 pain scale. Patient denies any allergies to medications, states he takes insulin for type 2 diabetes, lisinopril for hypertension and another hypertension medication that he cannot recall the name of. Patient states he also takes albuterol MDI as needed for asthma. Patient denies chest pain, shortness of breath, nausea, vomiting, diarrhea or constipation. Patient denies chest congestion or nasal congestion. Patient denies headaches, vision changes, or neurological deficits. Patient denies any other physical complaints or physical concerns. Review of Systems Review of Systems 14 body systems of review of systems have been reviewed. See HPI for pertinent positives and negative responses, otherwise all other systems are negative, nonpertinent or noncontributory. Allergies Allergies Allergies Coded Allergies Type Severity Reaction Last Updated Verified No Known Drug Allergies 07/24/13 No Physical Exam Physical Exam Constitutional: Well developed, well nourished, no acute distress, non-toxic appearance. 50-year-old male no apparent distress. HENT: Normocephalic, atraumatic, bilateral external ears normal, oropharynx moist, no oral exudates, nose normal. Oropharynx moist, pink, no deep tissue infectious process appreciated, no lymphadenopathy of the head or neck a ppreciated. Eyes: PERRLA, EOMI, conjunctiva normal, no discharge. Neck: Normal range of motion, no tenderness, supple, no stridor. Cardiovascular:Heart rate regular rhythm, no murmur, heart sounds S1-S2 to auscultation. Lungs & Thorax: Bilateral breath sounds clear to auscultation, no adventitious lung sounds appreciated. Abdomen: Bowel sounds normal, soft, no masses, no pulsatile masses. Patient a bdomen round, obese, and easily reducible umbilical hernia appreciated. Positive Blancas's sign. Negative rebound tenderness, no McBurney's point tenderness, negative psoas sign. No areas of ecchymosis of the abdomen. Skin: Warm, dry, no erythema, no rash. Back: No tenderness, no CVA tenderness. Extremities: No tenderness, no cyanosis, no clubbing, ROM intact, no edema. Neurologic: Alert and oriented X 3, normal motor function, normal sensory function, no focal deficits noted. Psychologic: Affect normal, judgement normal, mood normal. EKG EKG [] Radiology/Procedures Radiology/Procedures PATIENT: ESTEFANI HUMPHREYS ACCOUNT: [id number] : 1970 LOCATION: ER AGE: 50 SEX: M EXAM STATUS: REG ER ORD. PHYSICIAN: ALENA KEMP APRN REASON: ABDOMINAL PAIN WITH ELEVATED LIPASE - 75MLS OMNI 300 PROCEDURE: CT ABD PELV W/ IV CONTRST ONLY CT abdomen pelvis with contrast. HISTORY: Abdominal pain, elevated lipase CT abdomen pelvis was done using 75 mL Omnipaque 300 contrast. Lung bases are clear. There is no effusion. Liver was normal in appearance. There is no calcified gallstone or gallbladder wall thickening. Spleen is unremarkable. Adrenal glands are normal. There is not evidence of peripancreatic inflammation to suggest an acute pancreatitis. There is mild perinephric stranding about the kidneys. There is no mass or hydronephrosis in the kidneys. There is no renal or ureteral calculus. There is no small bowel obstruction. There is no free air. Appendix is normal. There is not evidence of a diverticulitis. There is a abdominal wall hernia at the umbilicus and just below the umbilicus. There is minimal inflammation in the mesentery possibly a mild panniculitis. There is no abnormal adenopathy. IMPRESSION: 1. There is not CT evidence of a pancreatitis. 2. Anterior abdominal wall hernia at the umbilicus. 3. No bowel obstruction. 4. Normal appendix. 5. Minimal inflammation in the mesentery nonspecific. PQRS Compliance Statement: One or more of the following individualized dose reduction techniques were utilized for this examination: 1. Automated exposure control 2. Adjustment of the mA and/or kV according to patient size 3. Use of iterative reconstruction technique Electronically signed by: Gerald Prescott MD (10/15/2020 3:57 PM) [facility] DICTATED AND SIGNED BY: GERALD PRESCOTT MD DATE: 10/15/20 1546 CC: ALENA KEMP APRN; CARLTON SAPP ~MTH0 0 Heart Score C/O Chest Pain: No Risk Factors: Risk Factors: DM, Current or recent (<one month) smoker, HTN, HLP, family history of CAD, obesity. Risk Scores: Risk Factors: DM, Current or recent (<one month) smoker, HTN, HLP, family history of CAD, obesity. Course & Med Decision Making Course & Med Decision Making Pertinent Labs and Imaging studies reviewed. (See chart for details) 50-year-old male, vital signs reviewed, presents emergency department stating his primary care physician's office sent him here to emergency department for an evaluation. I spoke with the patient's primary care provider МАРИЯ Alfonso whom stated the patient was seen in his office on the , labs were drawn, he received concerning results of an elevated amylase, and lipase. The patient's primary care provider was concerned the patient may have an acute pancreatitis and sent him to the emergency department for evaluation. Patient's physical examination concerning for pancreatitis versus surgical gallbladder versus other abdominal acute process. A CT scan of the abdomen pelvis was ordered, CBC, CMP, amylase. Patient amylase negative, CT result negative for acute gallbladder disease, pancreatitis, negative appendicitis as read by house radiologist interpretation. Radiologist did report "there is minimal inflammation in the mesentery possibly a mild panniculitis ". Discussed findings with patient, patient was given 75 mcg of fentanyl initially in the ED for abdominal pains. Patient reports abdominal pain relief. Discussed strict follow-up with primary care on Sunday for ongoing investigation of abdominal pain and surgical consult for umbilical hernia. Patient gave verbal understanding of discharge home instructions, follow-up with primary care on Sunday, return to ER precautions or concerns, will continue to take home pain medications as prescribed by his primary care provider, patient had no further questions or concerns and was discharged home without incident. Dragon Disclaimer Dragon Disclaimer This electronic medical record was generated, in whole or in part, using a voice recognition dictation system. Departure Departure: Impression: Primary Impression: Abdominal pain Additional Impressions: Umbilical hernia Abnormal abdominal CT scan Disposition: HOME / SELF CARE / HOMELESS Condition: GOOD Referrals: CARLTON SAPP (PCP) Additional Instructions: You were seen in the emergency department for abdominal pain, your primary care provider МАРИЯ Alfonso recommended you be seen here as he was concerned you may have a pancreatitis or other surgical abdomen concerns. A CAT scan of your abdomen and pelvis with contrast was performed. There were no concerning findings that require immediate attention or admission to the hospital. However as we discussed there is a umbilical hernia that may require surgical repair in the future. We have discussed you seeing МАРИЯ Alfonso on Sunday for ongoing evaluation of abdominal pain. Please return to the emergency department for worsening symptoms or other concerns. Please continue to take your prescribed medications as directed by your primary care provider. EMERGENCY DEPARTMENT GENERAL DISCHARGE INSTRUCTIONS Thank you for coming to [facility] (ED) today and trusting us with you care. We trust that you had a positivie experience in our Emergency Department. If you wish to speak to the department management, you may call the director at [phone]. YOUR FOLLOW UP INSTRUCTIONS ARE FOLLOWS: 1. Do you have a private Doctor? If you do not have a private doctor, please ask for a resource list of physicians or clinics that may be able to assist you with follow up care. 2. The Emergency Physician has interpreted your x-rays. The X-Ray specialist will also review them. If there is a change in the findings, you will be notified in 48 hours when at all possible. 3. A lab test or culture has been done, your results will be reviewed and you will be notified if you need a change in treatment. ADDITIONAL INSTRUCTIONS AND INFORMATION: 1. Your care today has been supervised by a physician who is specially trained in emergency care. Many problems require more than one evaluation for a complete diagnosis and treatment. We recommend that you schedule your follow up appointment as recommended to ensure complete treatment of you illness or injury. If you are unable to obtain follow up care and continue to have a problem, or if your condition worsens, we recommend that you return to the ED. 2. We are not able to safely determine your condition over the phone nor are we able to give sound medical advice over the phone. For these safety reasons, if you call for medical advice we will ask you to come to the ED for further evaluation. 3. If you have any questions regarding these discharge instructions please call the ED at [phone]. SAFETY INFORMATION: In the interest of safety, wellness, and injury prevention; we encourage you to wear your sealbelt, if you smoke; quite smoking, and we encourage family to use a protective helmet for bicycling and other sporting events that present an increased risk for head injury. IF YOUR SYMPTOMS WORSEN OR NEW SYMPTOMS DEVELOP, OR YOU HAVE CONCERNS ABOUT YOUR CONDITION; OR IF YOUR CONDITION WORSENS WHILE YOU ARE WAITING FOR YOUR FOLLOW UP APPOINTMENT; EITHER CONTACT YOUR PRIMARY CARE DOCTOR, THE PHYSICIAN WHOSE NAME AND NUMBER YOU WERE GIVEN, OR RETURN TO THE ED IMMEDIATELY. Problem Qualifiers Primary Impression: Abdominal pain Abdominal location: generalized Qualified Codes: R10.84 - Generalized abdominal pain Additional Impressions: Umbilical hernia Obstruction and gangrene presence: without obstruction or gangrene Qualified Codes: K42.9 - Umbilical hernia without obstruction or gangrene ALENA KEMP APRN Oct 15, 2020 13:46
[2020-10-15] MEDS ORDERED: IV NORMAL SALINE 1,000ML 1,000 ML IV ONE (14:30)
[2020-10-15 14:44] LABS: BASO % 0 % (0-3); EOS # 0.2 x10^3/uL (0.0-0.7); EOS % 2 % (0-3); HEMATOCRIT 36.4 % (39.0-53.0); LYMPH # 2.4 x10^3/uL (1.0-4.8); LYMPH % 23 % (24-48); MEAN CORPUSCULAR HEMOGLOBIN 28 pg (25-35); MEAN CORPUSCULAR HGB CONC 33 g/dL (31-37); MEAN CORPUSCULAR VOLUME 86 fL (79-100); MONO # 0.5 x10^3/uL (0.0-1.1); MONO % 5 % (0-9); NEUT % 69 % (31-73); PLATELET COUNT 269 x10^3/uL (140-400); RED BLOOD COUNT 4.24 x10^6/uL (4.30-5.70); RED CELL DISTRIBUTION WIDTH 15.2 % (11.5-14.5); WHITE BLOOD COUNT 10.1 x10^3/uL (4.0-11.0)
[2020-10-15] MEDS ORDERED: CONTRAST GIVEN. MC PRN (14:45)
[2020-10-15] MEDS ORDERED: IOHEXOL 300 MG/ML 75 ML VIAL. IV ONE (14:45)
[2020-10-15 14:53] LABS: CALCIUM 6.8 mg/dL (8.5-10.1); CREATININE 1.2 mg/dL (0.7-1.3); GFR 64.1; POTASSIUM 3.5 mmol/L (3.5-5.1)
[2020-10-15 14:59] LABS: ALBUMIN 2.9 g/dL (3.4-5.0); ALBUMIN/GLOBULIN RATIO 0.7 (1.0-1.7); TOTAL BILIRUBIN 0.5 mg/dL (0.2-1.0); TOTAL PROTEIN 7.2 g/dL (6.4-8.2)
[2020-10-15 15:19] LABS: BILIRUBIN,URINE NEG (NEG); CLARITY,URINE CLEAR; COLOR,URINE YELLOW; GLUCOSE,URINE NEG (NEG)
[2020-10-15 15:20] LABS: BACTERIA,URINE 0 /HPF (0-FEW); NITRITE,URINE NEG (NEG)
[2020-10-15 15:21] LABS: HYALINE CASTS, URINE OCC /HPF; SQUAMOUS EPITHELIAL CELL,UR MOD /LPF
--- NOTE | 2020-10-15 15:59 | RAD ---
CT abdomen pelvis with contrast. HISTORY: Abdominal pain, elevated lipase CT abdomen pelvis was done using 75 mL Omnipaque 300 contrast. Lung bases are clear. There is no effusion. Liver was normal in appearance. There is no calcified gal lstone or gallbladder wall thickening. Spleen is unremarkable. Adrenal glands are normal. There is no t evidence of peripancreatic inflammation to suggest an acute pancreatitis. There is mild perinephric stranding about the kidneys. There is no mass or hydronephrosis in the kidneys. There is no renal or ureteral calculus. There is no small bowel obstruction. There is no free air. Appendix is normal. Th ere is not evidence of a diverticulitis. There is a abdominal wall hernia at the umbilicus and just b elow the umbilicus. There is minimal inflammation in the mesentery possibly a mild panniculitis. Ther e is no abnormal adenopathy. IMPRESSION: 1. There is not CT evidence of a pancreatitis. 2. Anterior abdominal wall hernia at the umbilicus. 3. No bowel obstruction. 4. Normal appendix. 5. Minimal inflammation in the mesentery nonspecific. PQRS Compliance Statement: One or more of the following individualized dose reduction techniques were utilized for this examinat ion: 1. Automated exposure control 2. Adjustment of the mA and/or kV according to patient size 3. Use of iterative reconstruction technique Electronically signed by: Gerald Prescott MD (10/15/2020 3:57 PM) [facility]
[2020-10-15] MEDS ORDERED: CALCIUM CARB/VIT D3 500/200 TABLET PO STA (17:26)
[2020-10-15 17:37] VITALS: BP 122/68
== END 2020-10-15 17:54 | disposition home or self-care (01) ==
LOC: ER 13:26
DX: K42.9 Umbilical hernia without obstruction or gangrene (principal); R93.5 Abnormal findings on diagnostic imaging of other abdominal regions, including retroperitoneum; E11.9 Type 2 diabetes mellitus without complications; I10 Essential (primary) hypertension; J45.909 Unspecified asthma, uncomplicated
CPT/HCPCS: 36415; 74177; 80053; 81001; 83690; 85025; 96361; 96374; 99285; J3010; J7030; Q9967

== ENCOUNTER 2020-11-07 10:44 | Observation (INO) | payer MEDICAID ==
[~2020-11-07] VITALS: Ht 162.6 cm; Wt 125.2 kg
[~2020-11-07 10:44] MED LIST changes: -OMEP40CA45 PO; +OMEP40CA7 PO
--- NOTE | 2020-11-07 11:22 | PHYS DOC ---
Past History Past Medical History: Asthma, Diabetes, Hypertension Past Surgical History: No Surgical History Smoking: Non-smoker Alcohol Use: Rarely Drug Use: None General Adult EDM: Chief Complaint: ABDOMINAL PAIN HPI: HPI: Patient is a 50-year-old male coming in with 3 days of vomiting and diarrhea. Patient states he has vomited 5 times since he has been sick, but having diarrhea 20 times per day. His emesis is nonbloody or bilious, denies any blood or melanotic stools. Denies any fevers, cough. Patient had similar symptoms approximately 3 weeks ago that resolved on their own. Patient denies any abdominal pain that moves around. Review of Systems: Review of Systems: All other systems within normal limits except for as noted in the HPI Allergies: Allergies: Allergies Coded Allergies Type Severity Reaction Last Updated Verified No Known Drug Allergies 07/24/13 No Physical Exam: PE: Constitutional: Well developed, well nourished, no acute distress, non-toxic appearance. [] HENT: Normocephalic, atraumatic, bilateral external ears normal, nose normal. [] Eyes: PERRLA, conjunctiva normal, no discharge. [] Neck: No rigidity, supple, no stridor. [] Cardiovascular: Tachycardic, regular rhythm, brisk cap refill [] Lungs & Thorax: Non labored symmetric respirations, no tachypnea or respiratory distress [] Abdomen: Soft, nondistended, no point tenderness or guarding on palpation. Skin: Warm, dry, no erythema, no rash. [] Back: Unremarkable Extremities: No deformities, range of motion grossly intact, no lower extremity edema [] Neurologic: Alert and oriented X 3, no focal deficits noted. [] Psychologic: Affect normal, judgement normal, mood normal. [] Current Patient Data: Vital Signs: Vital Signs Date Time Temp Pulse Resp B/P (MAP) Pulse Ox O2 Delivery O2 Flow Rate FiO2 11/07/20 10:55 98.1 123 16 110/64 (79) 98 Room Air EKG: EKG: [] Radiology/Procedures: Radiology/Procedures: [] Heart Score: C/O Chest Pain: No Risk Factors: Risk Factors: DM, Current or recent (<one month) smoker, HTN, HLP, family history of CAD, obesity. Risk Scores: Score 0 - 3: 2.5% MACE over next 6 weeks - Discharge Home Score 4 - 6: 20.3% MACE over next 6 weeks - Admit for Clinical Observation Score 7 - 10: 72.7% MACE over next 6 weeks - Early Invasive Strategies Course & Med Decision Making: Course & Med Decision Making Pertinent Labs and Imaging studies reviewed. (See chart for details) [] Dragon Disclaimer: Dragon Disclaimer: This electronic medical record was generated, in whole or in part, using a voice recognition dictation system. Departure Departure: Impression: Primary Impression: Diarrhea Additional Impressions: OFELIA (acute kidney injury) Dehydration Disposition: ADMITTED INPATIENT Admitting Physician: Jamal Francis Condition: STABLE Referrals: CARLTON SAPP (PCP) BRITNEY WHITESIDE MD November 07, 2020 11:22
[2020-11-07] MEDS ORDERED: ONDANSETRON PF 4 MG/2 ML VIAL. ONE (11:25)
[2020-11-07] MEDS ORDERED: IV RINGERS SOLUTION,LACTATED 1,000 ML IV ONE (11:30)
[2020-11-07] MEDS ORDERED: ONDANSETRON PF 4 MG/2 ML VIAL. IVP ONE (11:30)
[2020-11-07 11:35] LABS: BASO % 0 % (0-3); EOS % 0 % (0-3); HEMATOCRIT 44.5 % (39.0-53.0); HEMOGLOBIN 14.6 g/dL (13.0-17.5); LYMPH # 2.4 x10^3/uL (1.0-4.8); LYMPH % 14 % (24-48); MEAN CORPUSCULAR HEMOGLOBIN 29 pg (25-35); MEAN CORPUSCULAR HGB CONC 33 g/dL (31-37); MEAN CORPUSCULAR VOLUME 87 fL (79-100); MONO # 1.8 x10^3/uL (0.0-1.1); MONO % 11 % (0-9); NEUT # 12.5 x10^3uL (1.8-7.7); NEUT % 75 % (31-73); PLATELET COUNT 255 x10^3/uL (140-400); RED BLOOD COUNT 5.11 x10^6/uL (4.30-5.70); RED CELL DISTRIBUTION WIDTH 15.2 % (11.5-14.5); WHITE BLOOD COUNT 16.7 x10^3/uL (4.0-11.0)
[2020-11-07 11:41] LABS: ALBUMIN 3.8 g/dL (3.4-5.0); ALBUMIN/GLOBULIN RATIO 0.9 (1.0-1.7); CALCIUM 7.9 mg/dL (8.5-10.1); CREATININE 2.1 mg/dL (0.7-1.3); GFR 33.6; TOTAL BILIRUBIN 0.9 mg/dL (0.2-1.0); TOTAL PROTEIN 8.2 g/dL (6.4-8.2)
[2020-11-07 12:03] LABS: BILIRUBIN,URINE SMALL (NEG); CLARITY,URINE CLEAR; COLOR,URINE YELLOW; GLUCOSE,URINE NEG (NEG)
[2020-11-07 12:04] LABS: BACTERIA,URINE MOD /HPF (0-FEW); NITRITE,URINE NEG (NEG); RBC,URINE OCC /HPF (0-2); SQUAMOUS EPITHELIAL CELL,UR MANY /LPF; UROBILINOGEN,URINE 0.2 mg/dL (0.2 mg/dL)
[2020-11-07] MEDS ORDERED: ONDANSETRON PF 4 MG/2 ML VIAL. IVP PRN (13:00)
[2020-11-07] MEDS ORDERED: ACETAMINOPHEN 325 MG TABLET PO PRN (13:00)
[2020-11-07 14:12] VITALS: BP 133/84
[2020-11-07] MEDS: IV NORMAL SALINE 1,000ML 1,000 ML IV SCH (15:00)
[2020-11-07 16:08] LABS: % BANDS 3 % (0-9); % EOS 1 % (0-5); % LYMPHS 23 % (24-48); % MONOS 9 % (0-10); % SEGS 64 % (35-66); PLT ESTIMATE ADEQUATE (ADEQUATE)
[2020-11-07] MEDS ORDERED: DIPHENOXYLATE/ATROPINE TABLET. PO PRN (17:45)
[2020-11-07] MEDS: MORPHINE SULFATE 4 MG/ML DISP.SYRIN. IVP PRN ×2 (17:55→20:30)
[2020-11-07 19:12] VITALS: BP 134/84
[2020-11-07 23:00] VITALS: BP 135/87
[2020-11-08] MEDS: IV NORMAL SALINE 1,000ML 1,000 ML IV SCH ×2 (00:18→09:00)
[2020-11-08 05:41] VITALS: BP 118/76
[2020-11-08 10:31] LABS: CALCIUM 7.6 mg/dL (8.5-10.1); CREATININE 1.6 mg/dL (0.7-1.3); POTASSIUM 3.9 mmol/L (3.5-5.1)
[2020-11-08 10:45] VITALS: BP 117/79
--- NOTE | 2020-11-08 12:02 | HP ---
ATTENDING PHYSICIAN: Dr. Francis CHIEF COMPLAINT: Abdominal pain and diarrhea. HISTORY OF PRESENT ILLNESS: The patient is a 50-year-old gentleman, single, lives at home with his mom. He has had a 3-day history of nausea, vomiting, and diarrhea. Vomited 5 times. His workup is fairly unremarkable. He did have an elevated creatinine of 2.1 mg/dL. He was admitted with dehydration. I am not aware of any previous history of injury. He did not have a CT scan because of elevated creatinine. His abdominal exam in the ED was unremarkable. PAST MEDICAL HISTORY: Significant for essential hypertension, type 2 diabetes and remote history of asthma. CURRENT MEDICATIONS: Include the following: He was scheduled to take Lipitor, Flexeril, Neurontin, regular and Lantus 75 units twice a day, omeprazole 40 mg daily. SOCIAL HISTORY: He is a nonsmoker, nondrinker. FAMILY HISTORY: Unremarkable. REVIEW OF SYSTEMS: He has had a history in the past of irritable bowel syndrome. He lives with his mom. There may be some developmental delay in talking with the patient. The rest of the detailed review of systems ____ turned to be negative. PHYSICAL EXAMINATION: GENERAL: When I saw him, this is a pleasant gentleman. He was alert and able to respond to questions. INITIAL VITAL SIGNS: Showed a blood pressure of 135/87, pulse is 77 and regular, he was afebrile. HEENT: Head is without trauma. Pupils are reactive. Sclerae nonicteric. Oropharynx clear. NECK: Supple, no bruits identified. LUNGS: Clear. CARDIOVASCULAR: Showed regular heart tones. No gallop. ABDOMEN: Obese, protuberant. No organomegaly. Bowel sounds were hypoactive. EXTREMITIES: Showed trace edema. NEUROLOGIC: Focally intact. SKIN: Warm and dry. LABORATORY DATA: On admission, his hemoglobin was 14.6 g/dL with a white count of 16,700. Chemistry panel showed a sodium of 138 mEq, potassium 4.0, BUN 34, creatinine 2.1 mg percent, nonfasting blood sugar 240. Urinalysis was clear. ASSESSMENT: 1. A 50-year-old gentleman with self-limiting gastroenteritis. 2. Dehydration. 3. Acute kidney injury related to dehydration. PLAN: 1. Admit to the inpatient unit. 2. IV hydration. 3. ____ as tolerated. 4. Lomotil p.r.n. diarrhea. 5. I did order a C. diff toxin assay. BRAEDEN/CJ/AMBER DR: Bharati TID: [id number] CC: МАРИЯ THORPE
--- NOTE | 2020-11-08 14:55 | DS ---
DATE OF DISCHARGE: 11/08/2020 ATTENDING PHYSICIAN: Dr. Francis. FINAL DISCHARGE DIAGNOSES: 1. Gastroenteritis self-limiting. 2. Dehydration, rehydrated. 3. Acute kidney injury related to dehydration, improved. 4. Type 2 diabetes. HISTORY AND PHYSICAL: This is a 50-year-old gentleman who lives at home with his mom. He has had diarrhea, nausea, vomiting for 3 days. Workup was fairly unremarkable. Previous admission in September showed a negative CT scan of the abdomen. They did not do a CT due to his elevated creatinine 2.1 mg percent. He was admitted for dehydration. PHYSICAL EXAMINATION: Please see my dictated note. PERTINENT LABORATORY AND X-RAY STUDIES: C. diff toxin was negative. Hemoglobin 14.6. White count 16,700. Admission BUN was 31 and creatinine was 2.1, repeated the next day creatinine came down to 1.6 mg per dL. Sodium was 139 mEq, potassium 3.9 mEq per liter. COURSE IN HOSPITAL: The patient was admitted. Diet was slowly advanced. He tolerated well with no further diarrhea. IVs were continued overnight. He had improved creatinine of 1.6 mg/dL the next day. He was feeling better. Abdominal exam was benign. Vital signs are stable. He was ready for discharge. At this time, he is discharged home with no changes in his meds. He will continue his Lipitor, Flexeril p.r.n., Neurontin, insulin schedule along with omeprazole. The patient was then discharged home to followup with Zachary Dougherty. I encouraged him to take some Gatorade. No new changes on his regimen. He was discharged in stable condition with explicit written and followup care. BRIAN DR: Bharati TID: [id number] CC: МАРИЯ THORPE
== END 2020-11-08 14:20 | disposition home or self-care (01) ==
LOC: ER 10:44 → 1 SOUTH 13:00
PROVIDERS: ADMIT Hospitalist; ATTEND Hospitalist
DX: K52.9 Noninfective gastroenteritis and colitis, unspecified (principal); E86.0 Dehydration; N17.9 Acute kidney failure, unspecified; I10 Essential (primary) hypertension; E11.9 Type 2 diabetes mellitus without complications; J45.909 Unspecified asthma, uncomplicated; Z79.4 Long term (current) use of insulin
CPT/HCPCS: 36415; 80048; 80053; 81001; 82947; 83690; 84484; 85007; 85025; 87086; 87147; 87493; 96361; 96374; 96375; 96376; 99284; G0378; J2270; J2405; J3010; J7030; J7120; G0379

== ENCOUNTER 2020-11-25 10:59 | Emergency (ER) | payer MEDICAID ==
[~2020-11-25] VITALS: Ht 162.6 cm; Wt 125.2 kg
--- NOTE | 2020-11-25 11:18 | PHYS DOC ---
Past History Past Medical History: Asthma, Diabetes, Hypertension Past Surgical History: No Surgical History Smoking: Non-smoker Alcohol Use: Rarely Drug Use: None Adult General Chief Complaint Chief Complaint: SHORTNESS OF BREATH HPI HPI Patient is a 50-year-old male presenting for shortness of breath via POV. Reports onset was 4 days ago without any known inciting event, trauma or ingestion. States he has been outside more and his allergies started getting to them, denies insect bites or other concerning exposures. Initially reports URI- like symptoms, runny nose and nasal congestion which he reports migrated to his lungs. Nothing known makes better or worse. Denies any pain just overall chest tightness and shortness of breath with wheezing which is new for him. Has history of tobacco use, smoked 1 pack/day for 7 years but quit greater than 5 years ago. Admits occasional alcohol use, admits to drinking 2 beers last night. No history of illicit drug use. Denies any fever, headache, lightheadedness, vision changes, ripping or tearing chest pain, abdominal pain, dysuria, sick contacts, COVID-19 exposure. Of note, he has received x2 Covid 19 vaccinations with no known contacts. Admits history of hypertension and uncontrolled diabetes (last hemoglobin A1c 9.5%) Review of Systems Review of Systems Fourteen body systems of review of systems have been reviewed. See HPI for pertinent positives and negative responses, other medley all other systems are negative, non-pertinent or non-contributory Allergies Allergies Allergies Coded Allergies Type Severity Reaction Last Updated Verified No Known Drug Allergies 07/24/13 No Physical Exam Physical Exam Constitutional: Well developed, well nourished, acutely distressed and diaphoretic HENT: Normocephalic, atraumatic, bilateral external ears normal, oropharynx moist, no oral exudates, nose normal. Upper lip appears abnormally large. Tolerating secretions, no phonation Eyes: PERRLA, EOMI, conjunctiva normal, no discharge. Neck: Normal range of motion, no tenderness, supple, no stridor. Cardiovascular: Heart rate tachycardic, sinus rhythm, no murmurs rubs or gallops Lungs & Thorax: Decreased breath sounds globally and patient in acute respir atory distress, tachypneic with accessory muscle use of neck and abdomen noted, crackles present bilaterally Abdomen: Bowel sounds normal, soft and protuberant, no tenderness, no masses, no pulsatile masses. Nonsurgical abdomen, no peritoneal signs Skin: Warm, dry, no erythema, no rash. Back: No tenderness, no CVA tenderness. Extremities: No tenderness, no cyanosis, no clubbing, ROM intact, no edema. Neurologic: Alert and oriented X 3, grossly normal motor & sensory function, no focal deficits noted. Psychologic: Anxious affect and mood Current Patient Data Vital Signs Vital Signs Date Time Temp Pulse Resp B/P (MAP) Pulse Ox O2 Delivery O2 Flow Rate FiO2 11/25/20 11:04 99.7 124 26 128/69 (88) 83 Room Air 11/25/20 11:25 15.0 Vital Signs Date Time Temp Pulse Resp B/P (MAP) Pulse Ox O2 Delivery O2 Flow Rate FiO2 11/25/20 12:01 97 BiPAP/CPAP 11/25/20 11:25 15.0 11/25/20 11:04 99.7 124 26 128/69 (88) Lab Results Laboratory Tests Test 11/25/20 11:20 11/25/20 11:49 White Blood Count 22.9 x10^3/uL Red Blood Count 4.10 x10^6/uL Hemoglobin 11.6 g/dL Hematocrit 35.9 % Mean Corpuscular Volume 88 fL Mean Corpuscular Hemoglobin 28 pg Mean Corpuscular Hemoglobin Concent 32 g/dL Red Cell Distribution Width 13.7 % Platelet Count 270 x10^3/uL Neutrophils (%) (Auto) 89 % Lymphocytes (%) (Auto) 6 % Monocytes (%) (Auto) 5 % Eosinophils (%) (Auto) 0 % Basophils (%) (Auto) 0 % Neutrophils # (Auto) 20.4 x10^3uL Lymphocytes # (Auto) 1.3 x10^3/uL Monocytes # (Auto) 1.1 x10^3/uL Eosinophils # (Auto) 0.0 x10^3/uL Basophils # (Auto) 0.1 x10^3/uL Platelet Estimate Pending Prothrombin Time 11.6 SEC Prothromb Time International Ratio 1.1 Activated Partial Thromboplast Time 28 SEC Bedside Venous pH 7.32 Bedside Venous pCO2 52 mmHg Bedside Venous pO2 91 mmHg Venous Blood HCO3 27 mmol/L POC Venous O2 Saturation (Debbie) 96 % Bedside FiO2 15 Sodium Level 137 mmol/L Potassium Level 4.9 mmol/L Chloride Level 100 mmol/L Carbon Dioxide Level 27 mmol/L Anion Gap 10 12 mmol/L Blood Urea Nitrogen 31 mg/dL Creatinine 2.4 mg/dL Estimated GFR (Cockcroft-Gault) 28.8 BUN/Creatinine Ratio 13 Glucose Level 163 mg/dL 165 mg/dL Lactic Acid Level 1.7 mmol/L Calcium Level 7.5 mg/dL Magnesium Level 1.5 mg/dL Total Bilirubin 0.5 mg/dL Aspartate Amino Transf (AST/SGOT) 27 U/L Alanine Aminotransferase (ALT/SGPT) 23 U/L Alkaline Phosphatase 119 U/L Troponin I Quantitative < 0.017 ng/mL VD-Yve-H-Type Natriuretic Peptide 323 pg/mL Total Protein 6.9 g/dL Albumin 3.1 g/dL Albumin/Globulin Ratio 0.8 Bedside Hemoglobin 11.9 gm/dL Bedside Hematocrit 35 % Bedside Sodium 135 mmol/L Bedside Potassium 4.6 mmol/L Bedside Chloride 99 mmol/L Bedside Total CO2 30 mmol/L Bedside Blood Urea Nitrogen 30 mg/dL Bedside Creatinine 2.4 mg/dL Bedside Ionized Calcium (Debbie) 1.05 mmol/L Bedside Troponin I 0.00 ng/ml Current Medications Medications (Trade) Dose Ordered Sig/Troy Route PRN Reason Start Time Stop Time Status Last Admin Dose Admin Albuterol/ Ipratropium (Duoneb) 3 ml STK-MED ONCE .ROUTE 11/25/20 11:19 11/25/20 11:19 DC Aspirin (Aspirin Chewable) 324 mg 1X ONCE PO 11/25/20 11:30 11/25/20 11:31 DC 11/25/20 11:41 Albuterol/ Ipratropium (Duoneb) 3 ml 1X ONCE NEB 11/25/20 11:30 11/25/20 11:31 DC 11/25/20 11:23 Methylprednisolone Sodium Succinate (SOLU-Medrol 125MG VIAL) 125 mg 1X ONCE IV 11/25/20 11:30 11/25/20 11:31 DC 11/25/20 11:41 Diphenhydramine HCl (Benadryl) 25 mg 1X ONCE IVP 11/25/20 11:30 11/25/20 11:34 DC 11/25/20 11:41 Nitroglycerin (Nitro-Bid Oint) 1 inch 1X ONCE TP 11/25/20 12:00 11/25/20 12:01 DC Iohexol (Omnipaque 350 Mg/ml) 100 ml 1X ONCE IV 11/25/20 12:15 11/25/20 12:16 DC Furosemide (Lasix) 40 mg 1X ONCE IVP 11/25/20 12:30 11/25/20 12:31 DC 11/25/20 12:41 Ceftriaxone Sodium 1 gm/ Sodium Chloride 50 ml @ 100 mls/hr 1X ONCE IV 11/25/20 12:30 11/25/20 12:59 DC 11/25/20 13:11 Azithromycin 500 mg/Sodium Chloride 250 ml @ 250 mls/hr 1X ONCE IV 11/25/20 12:30 11/25/20 13:29 DC 11/25/20 13:11 Lorazepam (Ativan Inj) 0.25 mg 1X ONCE IVP 11/25/20 13:00 11/25/20 13:01 DC 11/25/20 13:10 Sodium Chloride 250 ml @ As Directed STK-MED ONCE .ROUTE 11/25/20 13:02 11/25/20 13:02 DC Sodium Chloride 50 ml @ As Directed STK-MED ONCE .ROUTE 11/25/20 13:02 11/25/20 13:02 DC Azithromycin (Zithromax) 500 mg STK-MED ONCE IV 11/25/20 13:02 11/25/20 13:03 DC Ceftriaxone Sodium (Rocephin) 1 gm STK-MED ONCE .ROUTE 11/25/20 13:03 11/25/20 13:03 DC EKG EKG EKG ordered and interpreted by myself at 1140 hrs. as sinus tachycardia at 122 bpm, unremarkable intervals, no axis deviation, no acute ischemic findings, no STEMI Radiology/Procedures Radiology/Procedures Single view chest dated 11/25/2020. Comparison made to 10/17/2018. Clinical indication: Shortness of breath. FINDINGS: Single upright portable exam performed. Lung volumes are low, limiting evaluation. There is a focal rounded area of consolidation at the upper and mid zone on the right, new from prior study. Is also some patchy and linear opacities at the perihilar region and medial left base. No apparent pleural effusion. No pneumothorax. IMPRESSION: Patchy perihilar airspace disease with focal rounded area of consolidation at the upper to mid zone on the right. This could be related to pneumonia. A right upper lobe mass cannot be excluded. Recommend follow-up imaging after treatment to ensure resolution. Electronically signed by: Ace Shah MD (11/25/2020 11:43 AM) [facility] Heart Score C/O Chest Pain: Yes HEART Score for Chest Pain: HEART Score for Chest Pain Response (Comments) Value History Moderately Suspicious 1 ECG Normal 0 Age >45 - < 65 1 Risk Factors >3 Risk Factors or Hx CAD 2 Troponin < Normal Limit 0 Total 4 Risk Factors: Risk Factors: DM, Current or recent (<one month) smoker, HTN, HLP, family history of CAD, obesity. Risk Scores: Risk Factors: DM, Current or recent (<one month) smoker, HTN, HLP, family history of CAD, obesity. Course & Med Decision Making Course & Med Decision Making Patient presented in respiratory distress on 69% room air. Airway patent but concern for potential angioedema given large upper lip, and obvious respiratory distress, vitals and IV access obtained with supplemental oxygen via nasal cannula administered No improvement in oxygenation/ventilation and so, nonrebreather applied. 125 mg Solu-Medrol and 25 mg Benadryl for wheezing and suspect allergic reaction administered. X1 DuoNeb and 325 mg aspirin also administered. Patient's condition did not significantly improve and so, patient placed on BiPAP therapy with vast improvement in respiratory status ER work-up ensued. Chest x-ray concerning for pneumonia with questionable right-sided mass I discussed entirety of ER work-up with patient with good understanding, I disclosed that our ER lab capabilities limited but major diagnostic results were concerning for infectious respiratory infiltrate and OFELIA I discussed case with hospitalist at [facility] who also agreed need for transfer for ICU admission and continued care. I updated patient on this conversation and he was amenable to plan for hospital transfer and ICU admission IV antibiotics for infectious respiratory pathology administered. IV benzodiazepine low-dose administered with improvement in anxiety. IV magnesium started for low levels. I discussed role of follow-up imaging that should include CT angio with patient and accepting hospitalist. Given the fact that presentation is more likely infectious in setting of current OFELIA, this was deferred at our facility Critical Care Time This patient required critical care. Due to the fact that the patient required a significant amount of one on one physician - patient contact time, ordering and review of studies, arranging urgent treatment with development of a management plan, evaluation of patients response to treatment with frequent reassessments, and discussions with other providers this patient required 50 minutes of critical care time. Critical care time was indicated due to the inherent instability and/or potential for instability in this patient. The critical care time that is allocated to this patient is above and beyond any time spent on any other billable procedures performed on this patient. Dragon Disclaimer Dragon Disclaimer This electronic medical record was generated, in whole or in part, using a voice recognition dictation system. Departure Departure: Impression: Primary Impression: Acute respiratory failure with hypoxia Additional Impressions: PNA (pneumonia) OFELIA (acute kidney injury) Uncontrolled type 2 diabetes mellitus HTN (hypertension) Disposition: 02 SHORT TERM HOSPITAL ([facility]) Condition: STABLE Referrals: CARLTON SAPP (PCP) Problem Qualifiers MONICA RAMIREZ DO Nov 25, 2020 11:18
[2020-11-25] MEDS ORDERED: IPRATRPIUM/ALBUTEROL 0.5/2.5MG 3 ML NEBU. ONE (11:19)
[2020-11-25] MEDS: IPRATRPIUM/ALBUTEROL 0.5/2.5MG 3 ML NEBU. NEB ONE (11:23)
[2020-11-25] MEDS: methylPREDNISolone SOD SUCC PF 125 MG/2 ML VIAL. IV ONE (11:41)
[2020-11-25] MEDS: ASPIRIN CHEWABLE 81 MG TABLET. PO ONE (11:41)
[2020-11-25] MEDS: diphenhydrAMINE 50 MG/ML VIAL IVP ONE (11:41)
--- NOTE | 2020-11-25 11:45 | RAD ---
Single view chest dated 11/25/2020. Comparison made to 10/17/2018. Clinical indication: Shortness of breath. FINDINGS: Single upright portable exam performed. Lung volumes are low, limiting evaluation. There is a focal r ounded area of consolidation at the upper and mid zone on the right, new from prior study. Is also so me patchy and linear opacities at the perihilar region and medial left base. No apparent pleural effu andrew. No pneumothorax. IMPRESSION: Patchy perihilar airspace disease with focal rounded area of consolidation at the upper to mid zone o n the right. This could be related to pneumonia. A right upper lobe mass cannot be excluded. Recommen d follow-up imaging after treatment to ensure resolution. Electronically signed by: Ace Shah MD (11/25/2020 11:43 AM) [facility]
[2020-11-25 11:46] LABS: BASO # 0.1 x10^3/uL (0.0-0.2); BASO % 0 % (0-3); EOS % 0 % (0-3); HEMATOCRIT 35.9 % (39.0-53.0); HEMOGLOBIN 11.6 g/dL (13.0-17.5); LYMPH # 1.3 x10^3/uL (1.0-4.8); LYMPH % 6 % (24-48); MEAN CORPUSCULAR HEMOGLOBIN 28 pg (25-35); MEAN CORPUSCULAR HGB CONC 32 g/dL (31-37); MEAN CORPUSCULAR VOLUME 88 fL (79-100); MONO # 1.1 x10^3/uL (0.0-1.1); MONO % 5 % (0-9); NEUT # 20.4 x10^3uL (1.8-7.7); NEUT % 89 % (31-73); PLATELET COUNT 270 x10^3/uL (140-400); RED CELL DISTRIBUTION WIDTH 13.7 % (11.5-14.5); WHITE BLOOD COUNT 22.9 x10^3/uL (4.0-11.0)
[2020-11-25 11:59] LABS: POTASSIUM ISTAT 4.6 mmol/L (3.5-5.0)
[2020-11-25 12:00] LABS: HEMOGLOBIN ISTAT 11.9 gm/dL
[2020-11-25] MEDS: NITROGLYCERIN OINT 1 GM PACKET. TP ONE (12:00)
[2020-11-25] MEDS ORDERED: IOHEXOL 350 MG/ML 100 ML VIAL. IV ONE (12:15)
[2020-11-25] MEDS: FUROSEMIDE 40 MG/4 ML VIAL IVP ONE (12:41)
[2020-11-25] MEDS ORDERED: AZITHROMYCIN 500 MG VIAL. IV ONE (13:02)
[2020-11-25] MEDS ORDERED: IV NORMAL SALINE 250ML 250 ML ONE (13:02)
[2020-11-25] MEDS ORDERED: IV NORMAL SALINE 50ML 50 ML ONE (13:02)
[2020-11-25] MEDS ORDERED: cefTRIAXone SODIUM 1 GM VIAL ONE (13:03)
[2020-11-25] MEDS: AZITHROMYCIN 500 MG in IV NORMAL SALINE 250ML 250 ML IV ONE (13:11)
[2020-11-25 13:17] LABS: CALCIUM 7.5 mg/dL (8.5-10.1); CREATININE 2.4 mg/dL (0.7-1.3); GFR 28.8; POTASSIUM 4.9 mmol/L (3.5-5.1)
[2020-11-25 13:38] LABS: ALBUMIN 3.1 g/dL (3.4-5.0); ALBUMIN/GLOBULIN RATIO 0.8 (1.0-1.7); MAGNESIUM 1.5 mg/dL (1.8-2.4); TOTAL BILIRUBIN 0.5 mg/dL (0.2-1.0); TOTAL PROTEIN 6.9 g/dL (6.4-8.2)
[2020-11-25] MEDS: MAGNESIUM SULFATE 2GM 50 ML IV ONE (14:13)
[2020-11-25 15:24] LABS: % LYMPHS 13 % (24-48); % MONOS 6 % (0-10); % SEGS 81 % (35-66); PLT ESTIMATE ADEQUATE (ADEQUATE)
--- NOTE | 2020-11-25 15:35 | RAD ---
CT HEAD AND C-SPINE WO Date: 11/25/2020 3:14 PM Clinical Indication: fall on right head and midline neck pain Comparison: None. Technique: 5 mm axial tomographic images were obtained of the head without contrast. These were view ed on brain and bone windows. CT imaging of the cervical spine was performed without contrast. Coron al and sagittal reformatted images were performed. One or more of the following dose reduction techni ques were utilized: Automated exposure control (AEC), Adjustment of mA and/or kV according to patient size, Use of iterative reconstruction technique such as ASiR, CT scan done according to ALARA and im age gently/image wisely HEAD FINDINGS: The brain parenchyma is normal in attenuation. No intra- or extra-axial mass or fluid collection. No acute hemorrhage. The ventricles are normal in size, shape, and morphology. The anaya-white matter bony ction is normal. The basilar cisterns are patent. The visualized paranasal sinuses are normal. The visualized portions of the orbits and globes are no rmal. The mastoid air cells are clear. No aggressive osseous lesion or fracture. CERVICAL SPINE FINDINGS: Motion artifact degrades image quality. The cervical spine is normally aligned. No acute fracture. No aggressive lytic or blastic osseous les ion. Mild multilevel degenerative disc height loss. No high-grade spinal canal stenosis or neural foramina l narrowing. The thyroid gland is normal. No cervical lymphadenopathy. Sublingual mostly midline cystic structure measuring 4.9 x 3.1 x 3.6 cm which abuts the anterior margin of the hyoid. Right apical consolidation. IMPRESSION: 1. No acute intracranial process. 2. No acute osseous abnormality of the cervical spine, allowing for significant motion artifact. 3. Right apical consolidation, possibly infection or contusion given history of trauma. 4. 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 Comparison with prior imaging may be helpful to assess stability if available. Otherwise, follow-up contrast enhanced CT soft tissue neck or MRI should be obtained. Electronically signed by: Nilesh Barraza MD (11/25/2020 3:33 PM) [facility]
--- NOTE | 2020-11-25 15:39 | RAD ---
EXAMINATION: Chest, pelvis, right humerus, right shoulder and right forearm radiographs. VIEWS: Single AP view of the chest, single view of the pelvis, 3 views of the right shoulder, 2 views of the right humerus and 2 views of the forearm obtained. COMPARISON: CT dated 10/15/2020. Same day chest radiograph INDICATION:50 years, Male, fall on the left side. FINDINGS: CHEST: Low lung volume, may accentuate cardiac silhouette and pulmonary vascularity. Enlarged cardiom ediastinal silhouette. Right perihilar patchy airspace opacity is again seen. No pleural effusion or pneumothorax. No acute fracture in the imaged bilateral 1st to 9th ribs. Right shoulder: No acute fracture, dislocation or subluxation. No soft tissue swelling. Right humerus: No acute fracture, dislocation or subluxation. No bone erosion or periosteal reaction. No soft tissue swelling. Right forearm: No acute fracture, dislocation or subluxation. No bone erosion or periosteal reaction. No soft tissue swelling. Pelvis: No acute fracture, dislocation or subluxation. No soft tissue swelling. IMPRESSION: 1. No acute osseous process in the right shoulder, humerus, forearm or pelvis. 2. Redemonstrated patchy right perihilar airspace opacity, could represent pneumonia. Recommend follo w-up after treatment completion to ensure resolution. 3. No acute fracture in the imaged bilateral 1st to 9th ribs. Electronically signed by: Angeles Cortes MD (11/25/2020 3:37 PM) [id number]
[2020-11-25 16:00] VITALS: BP 151/76
--- NOTE | 2020-11-26 06:22 | EKG ---
[address] [address] Test Date: 2020-11-25 Test Time: 11:30:51 Pat Name: ESTEFANI HUMPHREYS Department: Room: Gender: M Feather Boner: CIERRA : 1970 Requested By: MONICA RAMIREZ Order Number: [id number] Reading MD: Measurements Intervals Ola Rate: 122 P: 58 NM: 134 QRS: 73 QRSD: 70 T: 45 QT: 316 QTc: 451 Interpretive Statements SINUS TACHYCARDIA OTHERWISE NORMAL ECG RI6.02 No previous ECG available for comparison
== END 2020-11-25 16:55 | disposition short-term general hospital (02) ==
LOC: ER 10:59
DX: J96.01 Acute respiratory failure with hypoxia (principal); J18.9 Pneumonia, unspecified organism; E11.65 Type 2 diabetes mellitus with hyperglycemia; N17.9 Acute kidney failure, unspecified; I10 Essential (primary) hypertension; J45.909 Unspecified asthma, uncomplicated; E11.9 Type 2 diabetes mellitus without complications
CPT/HCPCS: 36415; 70450; 71045; 72125; 72170; 73030; 73060; 73090; 80047; 80053; 82803; 83605; 83735; 83880; 84484; 85007; 85025; 85610; 85730; 87040; 93005; 94640; 94660; 96365; 96366; 96368; 96375; 99291; J0456; J0696; J1200; J1940; J2060; J2930; J3475; J7050

== ENCOUNTER → 2021-01-14 | Outpatient (CLI) | payer MEDICAID ==
--- NOTE | 2021-01-15 12:44 | RAD ---
5 view cervical spine radiographs 01/14/2021 CLINICAL HISTORY: Neck pain. Recent injury. AP, lateral, swimmer's lateral, bilateral oblique and AP open mouth odontoid digital radiographs of t he cervical spine were obtained. There is mild straightening of the normal cervical lordosis. No fracture or subluxation of the cervic al vertebrae is seen. No prevertebral soft tissue swelling is seen. No significant degenerative ulloa es are seen. Atherosclerotic calcification is seen in the region of the carotid bifurcations. IMPRESSION: No fracture or subluxation of the cervical vertebrae is seen. Electronically signed by: Carlo Chaney MD (01/15/2021 12:41 PM) [id number]
--- NOTE | 2021-01-15 12:47 | RAD ---
5 view lumbar spine radiographs 01/14/2021 CLINICAL HISTORY: Low back pain. Recent injury. AP, 2 lateral and bilateral oblique digital radiographs of the lumbar spine were obtained. Minimal S- shaped curvature of the thoracolumbar spine is seen. No fracture or subluxation of the lumbar vertebr ae is noted. Mild degenerative changes are seen involving the facet joints of the lower lumbar spine. IMPRESSION: No fracture or subluxation of the lumbar vertebrae is seen. Electronically signed by: Carlo Chaney MD (01/15/2021 12:44 PM) [id number]
== END ==
LOC: RAD 10:34
PROVIDERS: ATTEND Physician Assistant
DX: M54.2 Cervicalgia (principal); M54.5 Low back pain
CPT/HCPCS: 72050; 72110

== ENCOUNTER → 2021-01-18 | Outpatient (CLI) | payer MEDICAID ==
--- NOTE | 2021-01-18 09:38 | RAD ---
CT HEAD INDICATION: Reason: FREQUENT HEADACHES / Spl. Instructions: / History: COMPARISON: None Available. Exposure: One or more of the following individualized dose reduction techniques were utilized for thi s examination: 1. Automated exposure control 2. Adjustment of the mA and/or kV according to patient size 3. Use of iterative reconstruction technique TECHNIQUE: 5 mm contiguous axial images were obtained from the skull base to the vertex in both bone and soft tissue algorithm. FINDINGS: No abnormal attenuation within the brain parenchyma. No evidence of acute intracranial hemorrhage. No extra-axial fluid collections. Mild calcification of bilateral basal ganglia. No mass effect or midline shift. Ventricular size is appropriate. Basal cisterns are patent. No fractures identified.Moore-white differentiation is preserved.Globes and orbits are within normal l imits. Paranasal sinuses and mastoid air cells are clear. IMPRESSION: No acute intracranial findings. Electronically signed by: Gregorio Rodriguez MD (01/18/2021 9:35 AM) [id number]
== END ==
LOC: CT 09:05
PROVIDERS: ATTEND Physician Assistant
DX: R51.9 Headache, unspecified (principal)
CPT/HCPCS: 70450

== ENCOUNTER → 2021-05-17 | Outpatient (CLI) | payer MEDICAID ==
[~2021-05-17] MED LIST changes: -CYCL-331 PO; +CYCL10TA19 PO
--- NOTE | 2021-05-17 13:30 | RAD ---
5 views of the abdomen 05/17/2021 INDICATION: Abdominal pain COMPARISON STUDY: CT of the abdomen and pelvis October 15, 2020 Discussion: The bowel gas pattern is nonspecific and nonobstructive. No gross pneumoperitoneum is mirtha ntified. No acute osseous changes are seen. IMPRESSION: Nonspecific nonobstructive bowel gas pattern Electronically signed by: Jareth Reeves MD (05/17/2021 1:27 PM) [id number]
== END ==
LOC: RAD 11:33
PROVIDERS: ATTEND Physician Assistant
DX: R10.84 Generalized abdominal pain (principal)
CPT/HCPCS: 74019